=== PATIENT | male | born 1940 | race Caucasian/White ===

== ENCOUNTER 2018-07-20 14:02 | Inpatient (IN) | payer MEDICARE, MEDICAID ==
[2018-07-20 14:13] VITALS: BMI 24.8
--- NOTE | 2018-07-20 14:35 | C.PDOC ---
History Of Present Illness 77 y/o male presents to ED with c/o dizziness and headache since yesterday. Patient states yesterday afternoon he began to feel dizzy, went to sit down and fell forward sustaining abrasion to head. He fell on carpeted floor, and denies LOC. Patient admits to still feeling dizzy and pain to head when palpated. Denies vision changes, vomiting, chest pain or sob. - HPI Time Seen by Provider: 07/20/18 14:24 Chief Complaint (Nursing): Dizziness/Lightheaded History Per: Patient, Family History/Exam Limitations: no limitations Onset/Duration Of Symptoms: Days Past Medical History Reviewed: Historical Data, Nursing Documentation, Vital Signs Vital Signs: Last Vital Signs Temp 97.7 F 07/20/18 14:12 Pulse 88 07/20/18 14:12 Resp 16 07/20/18 14:12 BP 115/57 L 07/20/18 14:12 Pulse Ox 97 07/20/18 16:25 - Medical History PMH: Arthritis, Diabetes, HTN, Malignancy Surgical History: No Surg Hx Family History: States: No Known Family Hx - Social History Hx Alcohol Use: No Hx Substance Use: No - Immunization History Hx Tetanus Toxoid Vaccination: No Hx Influenza Vaccination: No Hx Pneumococcal Vaccination: No Review Of Systems Constitutional: Negative for: Fever, Chills Eyes: Negative for: Vision Change Cardiovascular: Negative for: Chest Pain Gastrointestinal: Negative for: Nausea, Vomiting Skin: Negative for: Rash Neurological: Positive for: Headache, Dizziness. Negative for: Weakness, Numbness Physical Exam - Physical Exam Appears: Non-toxic, No Acute Distress Skin: Warm, Dry, No Rash Head: Normacephalic, Abrasion (superficial to right frontal area) Eye(s): bilateral: Normal Inspection (No nystagmus), EOMI Oral Mucosa: Moist Neck: Supple Cardiovascular: Rhythm Regular Respiratory: Normal Breath Sounds, No Rales, No Rhonchi, No Wheezing Gastrointestinal/Abdominal: Soft, No Tenderness, No Guarding, No Rebound Extremity: Normal ROM, Capillary Refill (<2 seconds), No Deformity, Other (Left elbow: minimal tenderness to lateral aspect, superficial abrasion) Neurological/Psych: Oriented x3, Normal Speech, Normal Cranial Nerves, Normal Motor, Normal Sensation Gait: Steady ED Course And Treatment - Laboratory Results Result Diagrams: 07/20/18 14:41 07/20/18 14:41 Lab Interpretation: No Acute Changes ECG: Interpreted By Me, Viewed By Me ECG Interpretation: No Acute Changes Rate From EC O2 Sat by Pulse Oximetry: 97 (RA) Pulse Ox Interpretation: Normal - CT Scan/US CT head Other Rad Studies (CT/US): Read By Radiologist, Radiology Report Reviewed CT/US Interpretation: Date of service: 07/20/2018. PROCEDURE: CT HEAD WITHOUT CONTRAST. HISTORY: Dizziness. COMPARISON: None available. TECHNIQUE : Axial computed tomography images were obtained through the head/brain without intravenous contrast. Radiation dose: Total exam DLP = 1107.59 mGy- cm. This CT exam was performed using one or more of the following dose reduction techniques: Automated exposure control, adjustment of the mA and/or kV according to patient size, and/or use of iterative reconstruction technique. FINDINGS: HEMORRHAGE: No intracranial hemorrhage. BRAIN: Diffuse atrophy with prominence of the ventricles and sulci noted. No mass effect or edema. Bilateral basal ganglia calcifications. Scattered periventricular and subcortical white matter hypodensities, which are nonspecific, but often seen with chronic microvascular ischemic disease. Please note that MRI with diffusion imaging is more sensitive in the detection of acute ischemic event. VENTRICLES: No hydrocephalus. CALVARIUM: Unremarkable. PARANASAL SINUSES: Unremarkable as visualized. No significant inflammatory changes. MASTOID AIR CELLS: Partial opacification of the left mastoid air cells. The right mastoid air cells appear clear. OTHER FINDINGS: None. IMPRESSION: Generalized atrophy. Nonspecific white matter changes. Partial opacification of left mastoid air cells. Correlate clinically for possibility of mastoiditis. Medical Decision Making Medical Decision Making: Impression: head injury, dizzy Plan: * Blood work * UA * CT head w/o contrast * ECG Progress: Labs reviewed, there is leukocytosis with left shift and bands. Ordered CXR and blood cultures. Awaiting results of CT. CT head shows Generalized atrophy. Partial opacification of left mastoid air cells. Correlate clinically for possibility of mastoiditis. CXR shows Biapical pleural thickening. Bilateral lower lobe consolidations. Mid to lower left lobe opacity measuring approximately 5.6 x 4.0 cm possibly consolidation or neoplasm. Patient re-evaluated and resting comfortably. Ask patient further regarding any ear pain or cough or fever. The patient denies ear pain, but states has mild non -productive cough, no fevers or SOB. The TMs are pearly, dry cerumen in B/L ears. No mastoid tenderness. Case reviewed with ED attending who agrees ingectious source likely respiratory and to admit/treat Contact Dr Dumont to discuss the case and lab/imaging findings. He agrees to admit patient. Disposition Counseled Patient/Family Regarding: Diagnosis, Need For Followup - Disposition Disposition: HOSPITALIZED Disposition Time: 16:47 Condition: FAIR - POA Present On Arrival: None - Clinical Impression Clinical Impression: Pneumonia, Closed head injury - PA / SHAKER SCREEN OPERATOR / Resident Statement MD/DO has reviewed & agrees with the documentation as recorded. - Scribe Statement The provider has reviewed the documentation as recorded by the Scribe Lena Velazquez All medical record entries made by the Scribe were at my direction and personally dictated by me. I have reviewed the chart and agree that the record accurately reflects my personal performance of the history, physical exam, medical decision making, and the department course for this patient. I have also personally directed, reviewed, and agree with the discharge instructions and disposition. Decision To Admit - Pt Status Changed To: Hospital Disposition Of: Inpatient - Admit Certification Admit to Inpatient:: After my assessment, the patient will require hospitalization for at least two midnights. This is because of the severity of symptoms shown, intensity of services needed, and/or the medical risk in this patient being treated as an outpatient. - InPatient: Physician Admission Certification: I certify that this patient requires 2 or more midnights of care for the following reason:: Patient with acute pneumonia and leukocytosis with shift and bands. Patient will need IV antibiotics - . Bed Request Type: Regular Admitting Physician: Antonio Dumont Patient Diagnosis: Pneumonia, Closed head injury
[2018-07-20 14:45] LABS: BASO % 0.2 % (0.0-2.0); EOS % 0.3 % (0.0-4.0); HEMOGLOBIN 9.4 g/dL (12.0-18.0); LYMPH # 0.3 K/uL (1.0-4.3); LYMPH % 1.7 % (20.0-40.0); MEAN CELL VOLUME 87.6 fL (80.0-94.0); MEAN CORPUSCULAR HEMOGLOBIN 30.1 pg (27.0-31.0); MEAN CORPUSCULAR HGB CONC 34.4 g/dL (33.0-37.0); MEAN PLATELET VOLUME 7.9 fL (7.2-11.7); MONO # 0.8 K/uL (0.0-0.8); MONO % 5.3 % (0.0-10.0); NEUT # 13.7 K/uL (1.8-7.0); NEUT % 92.5 % (50.0-75.0); PLATELET COUNT 284 K/uL (130-400); RBC 3.13 Mil/uL (4.40-5.90); RED CELL DISTRIBUTION WIDTH 14.5 % (11.5-14.5); WHITE BLOOD COUNT 14.8 K/uL (4.8-10.8)
[2018-07-20 14:53] LABS: INR 1.2; PROTHROMBIN TIME 12.7 SECONDS (9.7-12.2)
[2018-07-20 14:57] LABS: ALB/GLOB RATIO 1.2 (1.0-2.1); ALBUMIN 3.8 g/dL (3.5-5.0); CALCIUM 9.1 mg/dl (8.6-10.4)
[2018-07-20 15:07] LABS: TROPONIN I 0.033 ng/mL (0.00-0.120)
[2018-07-20 15:26] LABS: ANISOCYTOSIS SLIGHT; BANDS 9 % (0-2); BURR CELLS SLIGHT; HYPOCHROMIC SLIGHT; LYMPHOCYTE 1 % (20-40); MONOCYTE 5 % (0-10); NEUTROPHIL 85 % (50-75); OVALOCYTES SLIGHT; PLATELET ESTIMATE NORMAL (NORMAL); POIKILOCYTOSIS SLIGHT; TARGET CELLS SLIGHT; TOTAL CELLS COUNTED 100
[2018-07-20] MEDS ORDERED: Sodium Chloride 0.9% 1,000 ML IV ONE (15:31)
[2018-07-20] MEDS ORDERED: Sodium Chloride 0.9% 1,000 ML ONE (15:43)
--- NOTE | 2018-07-20 15:46 | CT ---
Date of service: 07/20/2018 PROCEDURE: CT HEAD WITHOUT CONTRAST. HISTORY: Dizziness COMPARISON: None available TECHNIQUE: Axial computed tomography images were obtained through the head/brain without intravenous contrast. Radiation dose: Total exam DLP = 1107.59 mGy-cm. This CT exam was performed using one or more of the following dose reduction techniques: Automated exposure control, adjustment of the mA and/or kV according to patient size, and/or use of iterative reconstruction technique. FINDINGS: HEMORRHAGE: No intracranial hemorrhage. BRAIN: Diffuse atrophy with prominence of the ventricles and sulci noted. No mass effect or edema. Bilateral basal ganglia calcifications. Scattered periventricular and subcortical white matter hypodensities, which are nonspecific, but often seen with chronic microvascular ischemic disease. Please note that MRI with diffusion imaging is more sensitive in the detection of acute ischemic event. VENTRICLES: No hydrocephalus. CALVARIUM: Unremarkable. PARANASAL SINUSES: Unremarkable as visualized. No significant inflammatory changes. MASTOID AIR CELLS: Partial opacification of the left mastoid air cells. The right mastoid air cells appear clear. OTHER FINDINGS: None. IMPRESSION: Generalized atrophy. Nonspecific white matter changes. Partial opacification of left mastoid air cells. Correlate clinically for possibility of mastoiditis.
[2018-07-20 16:01] LABS: SQUAMOUS EPITHIAL 2 /hpf (0-5); URINE BACTERIA RARE (<OCC); WBC CLUMPS OCC /hpf
[2018-07-20 16:04] LABS: URINE BILIRUBIN SMALL (NEGATIVE); URINE BLOOD MODERATE (NEGATIVE); URINE CLARITY Hazy (Clear); URINE COLOR LIGHT BROWN (YELLOW); URINE GLUCOSE (UA) NEGATIVE (Normal)
[2018-07-20 16:05] LABS: PH,URINE 5.5 (5.0-8.0); URINE LEUKOCYTE ESTERASE 1+ Leu/uL (Negative); URINE PROTEIN 30 mg/dL (NEGATIVE); URINE UROBILINOGEN 0.2 mg/dL (0.2-1.0)
--- NOTE | 2018-07-20 16:32 | RAD ---
HISTORY: pre-admit COMPARISON: None available. TECHNIQUE: Chest PA and lateral FINDINGS: LUNGS: Biapical pleural thickening. Bilateral lower lobe consolidations. Left mid to lower lobe opacity measuring approximately 5.6 x 4.0 cm possibly consolidation or neoplasm. Please note that chest x-ray has limited sensitivity for the detection of pulmonary masses. PLEURA: No significant pleural effusion identified. No definite pneumothorax . CARDIOVASCULAR: Mild cardiomegaly. Ectatic aorta. OSSEOUS STRUCTURES: Osseous demineralization. Degenerative changes. VISUALIZED UPPER ABDOMEN: Unremarkable. OTHER FINDINGS: None. IMPRESSION: Biapical pleural thickening. Bilateral lower lobe consolidations. Mid to lower left lobe opacity measuring approximately 5.6 x 4.0 cm possibly consolidation or neoplasm. Mild cardiomegaly. Ectatic aorta.
[2018-07-20] MEDS ORDERED: cefTRIAXone IV 1 gm in Dextros 50 ML IV ONE (16:46)
[2018-07-20] MEDS ORDERED: Azithromycin 500mg/250ML NS 500 MG/250 ML BAG IV ONE (17:00)
[2018-07-20] MEDS ORDERED: cefTRIAXone 1 gm 1 GM/100 ML BAG IVPB ONE ×2 (17:03→18:00)
[2018-07-20] MEDS ORDERED: Azithromycin 500mg/250ML NS 500 MG/250 ML BAG IVPB ONE (17:04)
[2018-07-20] MEDS ORDERED: Dextrose 50% SYRINGE Inj (50 ml) IV PRN (20:14)
[2018-07-20] MEDS ORDERED: Glucagon Recombinant 1 mg Inj IM PRN (20:14)
[2018-07-20] MEDS: Sodium Chloride 0.45% 1,000 ML IV SCH (20:20)
[2018-07-20] MEDS: (Novolin R) Insulin Human Regular 100 units/ml vial SC SCH (21:34)
[2018-07-21 00:07] VITALS: RESP 20
--- NOTE | 2018-07-21 05:23 | HP ---
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 He was taken here by his brother. He called earlier that he was getting dizzy, lightheaded, also coughing. He had an abrasion on his head when he fell when he got dizzy. They brought him to the emergency room. Dizzy, lightheaded. We felt that the patient is on medicine for bronchitis with antibiotics and cough medicine. PAST MEDICAL HISTORY: He has past medical history of arthritis, diabetes, hypertension, cancer. PAST SURGICAL HISTORY: No surgical history. FAMILY HISTORY: Has hypertension in the family. SOCIAL HISTORY: No alcohol, no drugs, no smoking. REVIEW OF SYSTEMS: No fever. No chills. He is alert. He is talking. No acute vision changes. No hearing changes. No chest pain. No nausea or vomiting. He was dizzy and is short of breath. PHYSICAL EXAMINATION: VITAL SIGNS: He has 97.7 temperature, 88 pulse, 16 respiratory rate, 115/57 blood pressure, 97% O2 saturation on room air. GENERAL: He is resting comfortably, now in the gurney after antibiotics. In the emergency room, he is nontoxic. At this time, in no acute distress. SKIN: Warm and dry. No rashes. HEENT: Head is atraumatic and normocephalic. Superficial right frontal area abrasion. Extraocular muscles intact. He is smiling and is talking to me. NECK: Supple. Thyroid midline. No palpable appreciable lymphadenopathy. HEART: Regular rate. LUNGS: Decreased breath sounds bilaterally but no wheezes, rhonchi or rales auscultated. ABDOMEN: Soft. Nontender. Positive bowel sounds. No guarding. No rebound. No CVA tenderness. EXTREMITIES: No edema. NEUROLOGIC: He is alert, comfortable. Cranial nerves II through XII are grossly intact. SKIN: Slightly pale. No apparent rashes or ulcers. LABORATORY DATA: He had multiple tests in the ER. He has 130 sodium, potassium 3.6, BUN is up to 73, creatinine 3.3. I remember being lower GFR is 18. Sugar is 137, will have insulin coverage. Lactic acid is 1. Calcium is 9.1. Total bili is 0.7, AST is 53, ALT is 42, alkaline phosphatase is 75. Troponin I is 0.03. Total protein is 7.1, albumin 3.8. INR is 1.2. White count is up to 14.8, hemoglobin 9.4, hematocrit 27.4, platelets are 284. Interesting enough is chest x-ray showed biapical pleural thickening, bilateral lower lobe consolidation, mid to lower left lobe opacity measuring 5.6 x 4 cm, possibly consolidation and neoplasm, mild cardiomegaly. He also had a CAT scan of the head, generalized atrophy, nonspecific white matter; partial opacification of left mastoid air cells. IMPRESSION AND PLAN: We will have a consult with Renal for his acute kidney injury, Pulmonary for his possible pneumonia versus neoplasm, and for his syncope or near-syncope and dizziness, we will have Neuro. He will be on Rocephin intravenous, Zithromax intravenous and intravenous IV fluids. Physical Therapy consult. Oxygen. Check his labs tomorrow. Hopefully, he will improve. Had a dizzy, had a fall and has questionable pneumonia versus neoplasm, acute kidney injury. He is diabetic. Antonio Dumont DO [facility]
[2018-07-21] MEDS ORDERED: Promethazine DM 6.25 mg-15 mg/5 ml Syrup PO PRN (06:36)
[2018-07-21] MEDS: Levothyroxine 50 MCG TAB PO SCH (06:55)
[2018-07-21 07:30] LABS: BASO % 0.2 % (0.0-2.0); EOS # 0.1 K/uL (0.0-0.7); EOS % 0.6 % (0.0-4.0); HEMOGLOBIN 9.1 g/dL (12.0-18.0); LYMPH # 0.6 K/uL (1.0-4.3); LYMPH % 3.9 % (20.0-40.0); MEAN CELL VOLUME 86.6 fL (80.0-94.0); MEAN CORPUSCULAR HEMOGLOBIN 30.3 pg (27.0-31.0); MEAN PLATELET VOLUME 8.3 fL (7.2-11.7); MONO # 0.7 K/uL (0.0-0.8); NEUT # 13.2 K/uL (1.8-7.0); NEUT % 90.3 % (50.0-75.0); PLATELET COUNT 267 K/uL (130-400); RBC 2.99 Mil/uL (4.40-5.90); RED CELL DISTRIBUTION WIDTH 14.4 % (11.5-14.5); WHITE BLOOD COUNT 14.7 K/uL (4.8-10.8)
[2018-07-21 07:55] LABS: ALBUMIN 2.9 g/dL (3.5-5.0); CALCIUM 8.4 mg/dl (8.6-10.4)
[2018-07-21] MEDS: (Novolin R) Insulin Human Regular 100 units/ml vial SC SCH ×4 (08:13→22:35)
[2018-07-21 08:56] LABS: BANDS 4 % (0-2); EOSINOPHIL 1 % (0-4); LYMPHOCYTE 3 % (20-40); MONOCYTE 6 % (0-10); NEUTROPHIL 86 % (50-75); PLATELET ESTIMATE NORMAL (NORMAL); TOTAL CELLS COUNTED 100
[2018-07-21 09:12] LABS: BURR CELLS SLIGHT; HYPOCHROMIC SLIGHT; OVALOCYTES SLIGHT; POLYCHROMIC SLIGHT
[2018-07-21] MEDS ORDERED: Azithromycin 500 MG in Sodium Chloride 0.9% 250 ML IVPB SCH (10:00)
[2018-07-21] MEDS ORDERED: Levothyroxine 50 MCG TAB PO SCH (10:00)
[2018-07-21] MEDS: Enoxaparin 30 mg Syringe SC SCH (10:25)
[2018-07-21] MEDS: Pantoprazole 40 mg EC Tab PO SCH (10:25)
[2018-07-21] MEDS: LIPASE/PROTEASE/AMYLASE 21,000 U ECC PO SCH ×3 (11:00→16:57)
[2018-07-21] MEDS: Fluticasone-Salmeterol 250-50mcg Diskus IH SCH ×2 (11:17→19:57)
--- NOTE | 2018-07-21 11:18 | PN ---
DATE: 07/21/2018 SUBJECTIVE: He is resting comfortably in bed this morning. He had some coughing last night. No apparent wheeze, but he did sleep most of the night. He had some temperatures last night, the nurse said they needed Tylenol, it was fairly over 100, but he is comfortable. I want to get him out of bed to chair. He is on Rocephin and Zithromax IV for a possible pneumonia versus malignancy. Will need pulmonology to see him. PHYSICAL EXAMINATION: VITAL SIGNS: He has a 101.1 temperature, 92 pulse, 115/60 blood pressure, 20 respiratory rate and 96% O2 sat on nasal cannula. HEENT: His head is atraumatic and normocephalic. HEART: Regular rate. LUNGS: Decreased breath sounds bilaterally. No wheezes. No rhonchi. No rales at this time. ABDOMEN: Soft and nontender. Positive bowel sounds. EXTREMITIES: No edema. LABORATORY DATA: He has a 14.8 white count that was last night, last not populated. His blood sugar is 119. ASSESSMENT AND PLAN: He will have consults with Pulmonary, Renal and Neurology. He had a dizziness and fall. He has acute kidney injury and pneumonia versus neoplasm. He is on intravenous fluids, hopefully to help the kidneys. He is on Tylenol and antibiotics, alternative cough medicine to help them expectorate. I am hoping to get him out of bed to chair, I wonder what physical therapy feels about him. He might need to go to and hopefully he will improve. He comes in with a fall, dizziness, lower head trauma, possible pneumonia versus neoplasm and acute kidney injury. Antonio Dumont DO [facility]
[2018-07-21] MEDS ORDERED: Potassium Chloride 20 mEq/15 ml LIQ UD PO ONE (14:00)
--- NOTE | 2018-07-21 15:50 | CP.PCM.CON ---
History of Present Illness - History of Present Illness History of Present Illness: RENAL CONSULT FOR ADEN HPI: 77 yo M w/ pmh of dm and htn presenting w/ lightheadedness and fall. He was recently seeen by PCP on home visit for bronchitis and started on abx. He presented w/ lightheadedness, poor po intake and a fall complicated by an abrasian. He was found to have ADEN. He is unaware of any CKD history. He denies any difficulty w/ urination. He denies any NSAID use. Denies sycope. he was started on abx. He is being evaluated by pulm as well. + fevers. + mildly hypotensive ROS a full detailed ROS is negative except as above pmh: as below famhx: no esrd sochx: as below meds: as below all: nkda pe: vs as below gen: nad sclera: anicteric peerla op: clear poor dentition neck: supple cv: +s1+s2 no rub lungs: coarse bs w/ rales b/l abd: soft ntnd no organomegaly ext: no edema neuro: a+ox3 no focal deficit th psych: nml affect skin: abrasion on head labs and imaging reviewed imp: ARF/ hypokalemia/ Pneumonia/ Anemia / hypertension plan: ADEN - likely prerenal - was on hctz + diclofenac also as outpt w/ poor po intake - improving w/ abx and gentle hydratione. Will continue fluids as already written as improving will consider renal/bladder US if does not continue to improve 20 meq of kcl ordered on abx - dose for reduced eGFR f/u pulm evaluation consider ct chest , would avoid IV contrast for now unless renal function significantly improves anemia work up per primary team - unlikely to be renal related if all acute kideny injury. b/l renal function though is not known agree w/ holding his outpt ruben-i given the mildly low bp. thank you for this interesting consult Past Patient History - Past Medical History & Family History Past Medical History?: Yes - Past Social History Smoking Status: Never Smoked - CARDIAC Hx Hypertension: Yes - NEUROLOGICAL Hx Neurological Disorder: No - HEENT Hx HEENT Problems: No - RENAL Hx Chronic Kidney Disease: No - ENDOCRINE/METABOLIC Hx Diabetes Mellitus Type 2: Yes - HEMATOLOGICAL/ONCOLOGICAL Hx Blood Disorders: No - INTEGUMENTARY Hx Dermatological Problems: No - MUSCULOSKELETAL/RHEUMATOLOGICAL Hx Arthritis: Yes Hx Falls: Yes Hx Unsteady Gait: Yes - GASTROINTESTINAL Hx Gastrointestinal Disorders: No - GENITOURINARY/GYNECOLOGICAL Hx Genitourinary Disorders: No - PSYCHIATRIC Hx Substance Use: No - SURGICAL HISTORY Hx Surgeries: No - ANESTHESIA Hx Anesthesia: No Hx Anesthesia Reactions: No Hx Malignant Hyperthermia: No Has any member of the family had a problem w/ anesthesia?: No Meds Allergies/Adverse Reactions: Allergies Allergy/AdvReac Type Severity Reaction Status Date / Time No Known Allergies Allergy Verified 07/20/18 14:11 - Medications Medications: Current Medications Acetaminophen (Tylenol 325mg Tab) 650 mg PO Q6 PRN PRN Reason: Temperature Dextrose (Dextrose 50% Inj) 0 ml IV STAT PRN; Protocol PRN Reason: Hypoglycemia Protocol Dextrose (Glutose 15) 0 gm PO ONCE PRN; Protocol PRN Reason: Hypoglycemia Protocol Enoxaparin Sodium (Lovenox) 30 mg SC DAILY [facility] Last Admin: 07/21/18 10:25 Dose: 30 mg Finasteride (Proscar) 5 mg PO DAILY [facility] Last Admin: 07/21/18 10:26 Dose: 5 mg Finasteride (Proscar) 5 mg PO DAILY [facility] Last Admin: 07/21/18 11:32 Dose: Not Given Glucagon (Glucagen Diagnostic Kit) 0 mg IM STAT PRN; Protocol PRN Reason: Hypoglycemia Protocol Ceftriaxone Sodium 1 gm/ (Sodium Chloride) 100 mls @ 100 mls/hr IVPB DAILY [facility] PRN Reason: Protocol Last Admin: 07/21/18 10:26 Dose: 100 mls/hr Azithromycin 500 mg/ Sodium (Chloride) 250 mls @ 250 mls/hr IVPB DAILY [facility] PRN Reason: Protocol Last Admin: 07/21/18 10:50 Dose: 250 mls/hr Sodium Chloride (Sodium Chloride 0.45%) 1,000 mls @ 40 mls/hr IV .Q24H [facility] Last Admin: 07/20/18 20:20 Dose: 40 mls/hr Dextrose (Dextrose 5% In Water 1000 Ml) 1,000 mls @ 0 mls/hr IV .Q0M PRN; Protocol; Per Protocol PRN Reason: Hypoglycemia Protocol Insulin Human Regular (Novolin R) 0 unit SC ACHS [facility] Last Admin: 07/21/18 11:32 Dose: Not Given Levothyroxine Sodium (Synthroid) 50 mcg PO DAILY@0630 [facility] Last Admin: 07/21/18 06:55 Dose: 50 mcg Pantoprazole Sodium (Protonix Ec Tab) 40 mg PO DAILY [facility] Last Admin: 07/21/18 10:25 Dose: 40 mg Pneumococcal Polyvalent Vaccine (Pneumovax 23 Vaccine) 0.5 ml IM .ONCE ONE Stop: 07/23/18 10:01 Promethazine HCl/Dextromethorphan (Phenergan Dm Syrup) 5 ml PO Q6H PRN PRN Reason: Cough Rosuvastatin Calcium (Crestor) 10 mg PO HS [facility] Last Admin: 07/20/18 21:35 Dose: 10 mg Fluticasone/Salmeterol (Advair Diskus 250/50) 1 puff IH RBID [facility] Last Admin: 07/21/18 11:17 Dose: Not Given Sertraline HCl (Zoloft) 50 mg PO DAILY [facility] Last Admin: 07/21/18 10:25 Dose: 50 mg Tamsulosin HCl (Flomax) 0.4 mg PO DAILY [facility] Last Admin: 07/21/18 10:29 Dose: 0.4 mg Results - Vital Signs Recent Vital Signs: Last Vital Signs Temp 99.8 F H 07/21/18 15:27 Pulse 93 H 07/21/18 15:27 Resp 20 07/21/18 15:27 BP 152/68 H 07/21/18 15:27 Pulse Ox 98 07/21/18 15:27 - Labs Result Diagrams: 07/21/18 07:10 07/21/18 07:10 Labs: Laboratory Results - last 24 hr 07/20/18 07/20/18 07/20/18 15:38 16:31 21:21 WBC RBC Hgb Hct MCV MCH MCHC RDW Plt Count MPV Neut % (Auto) Lymph % (Auto) [place] % (Auto) Eos % (Auto) Baso % (Auto) Neut # (Auto) Lymph # (Auto) [place] # (Auto) Eos # (Auto) Baso # (Auto) Neutrophils % (Manual) Band Neutrophils % Lymphocytes % (Manual) Monocytes % (Manual) Eosinophils % (Manual) Platelet Estimate Polychromasia Hypochromasia (manual) Ovalocytes Lis Cells Sodium Potassium Chloride Carbon Dioxide Anion Gap BUN Creatinine Est GFR ( Amer) Est GFR (Non-Af Amer) POC Glucose (mg/dL) 119 H Random Glucose Lactic Acid 1.0 Calcium Total Bilirubin AST ALT Alkaline Phosphatase Total Protein Albumin Globulin Albumin/Globulin Ratio Urine Color Light brown Urine Clarity Hazy Urine pH 5.5 Ur Specific [place] 1.030 Urine Protein 30 Urine Glucose (UA) Negative Urine Ketones Trace H Urine Blood Moderate Urine Nitrate Negative Urine Bilirubin Small Urine Urobilinogen 0.2 Ur Leukocyte Esterase 1+ H Urine WBC (Auto) 17 H Urine RBC (Auto) 10 H Urine WBC Clumps (Auto) Occ H Ur Squamous Epith Cells 2 Urine Bacteria Rare Hyaline Casts 6-10 H 07/21/18 07/21/18 07/21/18 02:32 07:10 07:10 WBC 14.7 H RBC 2.99 L Hgb 9.1 L Hct 25.9 L MCV 86.6 MCH 30.3 MCHC 35.0 RDW 14.4 Plt Count 267 MPV 8.3 Neut % (Auto) 90.3 H Lymph % (Auto) 3.9 L [place] % (Auto) 5.0 Eos % (Auto) 0.6 Baso % (Auto) 0.2 Neut # (Auto) 13.2 H Lymph # (Auto) 0.6 L [place] # (Auto) 0.7 Eos # (Auto) 0.1 Baso # (Auto) 0.0 Neutrophils % (Manual) 86 H Band Neutrophils % 4 H Lymphocytes % (Manual) 3 L Monocytes % (Manual) 6 Eosinophils % (Manual) 1 Platelet Estimate Normal Polychromasia Slight Hypochromasia (manual) Slight Ovalocytes Slight [place] Cells Slight Sodium 137 Potassium 3.3 L Chloride 104 Carbon Dioxide 17 L Anion Gap 19 BUN 67 H Creatinine 2.5 H Est GFR ( Amer) 30 Est GFR (Non-Af Amer) 25 POC Glucose (mg/dL) 92 Random Glucose 107 Lactic Acid Calcium 8.4 L Total Bilirubin 0.5 AST 86 H D ALT 67 Alkaline Phosphatase 119 Total Protein 5.9 L Albumin 2.9 L D Globulin 2.9 Albumin/Globulin Ratio 1.0 Urine Color Urine Clarity Urine pH Ur Specific [place] Urine Protein Urine Glucose (UA) Urine Ketones Urine Blood Urine Nitrate Urine Bilirubin Urine Urobilinogen Ur Leukocyte Esterase Urine WBC (Auto) Urine RBC (Auto) Urine WBC Clumps (Auto) Ur Squamous Epith Cells Urine Bacteria Hyaline Casts 07/21/18 07/21/18 07:22 11:08 WBC RBC Hgb Hct MCV MCH MCHC RDW Plt Count MPV Neut % (Auto) Lymph % (Auto) [place] % (Auto) Eos % (Auto) Baso % (Auto) Neut # (Auto) Lymph # (Auto) [place] # (Auto) Eos # (Auto) Baso # (Auto) Neutrophils % (Manual) Band Neutrophils % Lymphocytes % (Manual) Monocytes % (Manual) Eosinophils % (Manual) Platelet Estimate Polychromasia Hypochromasia (manual) Ovalocytes Lis Cells Sodium Potassium Chloride Carbon Dioxide Anion Gap BUN Creatinine Est GFR ( Amer) Est GFR (Non-Af Amer) POC Glucose (mg/dL) 109 117 H Random Glucose Lactic Acid Calcium Total Bilirubin AST ALT Alkaline Phosphatase Total Protein Albumin Globulin Albumin/Globulin Ratio Urine Color Urine Clarity Urine pH Ur Specific [place] Urine Protein Urine Glucose (UA) Urine Ketones Urine Blood Urine Nitrate Urine Bilirubin Urine Urobilinogen Ur Leukocyte Esterase Urine WBC (Auto) Urine RBC (Auto) Urine WBC Clumps (Auto) Ur Squamous Epith Cells Urine Bacteria Hyaline Casts
--- NOTE | 2018-07-21 18:42 | CP.PCM.CON ---
History of Present Illness - History of Present Illness History of Present Illness: 77 y/o male presents to ED with c/o dizziness and headache since yesterday. Patient states yesterday afternoon he began to feel dizzy, went to sit down and fell forward sustaining abrasion to head. He fell on carpeted floor, and denies LOC. Patient admits to still feeling dizzy and pain to head when palpated. Denies vision changes, vomiting, chest pain or sob. admitted for pneumonia and ? lung mass Blood c/s x 2 + for cocci in cluters ( official ID pending) - Medical History PMH: Arthritis, Diabetes, HTN, Malignancy Surgical History: No Surg Hx Family History: States: No Known Family Hx Review of Systems - Review of Systems All systems: reviewed and no additional remarkable complaints except - Constitutional Constitutional: As Per HPI, Anorexia, Chills - EENT Eyes: absent: As Per HPI, Blind Spots, Blurred Vision, Change in Vision, Decreased Night Vision, Diplopia, Discharge, Dry Eye, Exophthalmos, Floaters, Irritation, Itchy Eyes, Loss of Peripheral Vision, Pain, Photophobia, Requires Corrective Lenses, Sees Flashes, Spots in Vision, Tunnel Vision, Other Visual Disturbances, Loss of Vision, Other Ears: absent: As Per HPI, Decreased Hearing, Ear Discharge, Ear Pain, Tinnitus, Abnormal Hearing, Disequilibrium, Dizziness, Other Nose/Mouth/Throat: absent: As Per HPI, Epistaxis, Nasal Congestion, Nasal Discharge, Nasal Obstruction, Nasal Trauma, Nose Pain, Post Nasal Drip, Sinus Pain, Sinus Pressure, Bleeding Gums, Change in Voice, Dental Pain, Dry Mouth, Dysphagia, Halitosis, Hoarsness, Lip Swelling, Mouth Lesions, Mouth Pain, Odynophagia, Sore Throat, Throat Swelling, Tongue Swelling, Facial Pain, Neck Pain, Neck Mass, Other - Cardiovascular Cardiovascular: As Per HPI - Respiratory Respiratory: As Per HPI, Cough, Dyspnea - Gastrointestinal Gastrointestinal: absent: As Per HPI, Abdominal Pain, Belching, Bloating, Change in Bowel Habits, Change in Stool Character, Coffee Ground Emesis, Constipation, Cramping, Diarrhea, Dyspepsia, Dysphagia, Early Satiety, Excessive Flatus, Fecal Incontinence, Heartburn, Hematemesis, Hematochezia, Loose Stools, Melena, Nausea, Odynophagia, Temesmus, Vomiting, Other - Genitourinary Genitourinary: absent: As Per HPI, Change in Urinary Stream, Difficulty Urinating, Dysuria, Flank Pain, Hematuria, Pyuria, Nocturia, Urinary Incontinence, Urinary Frequency, Urinary Hesitance, Urinary Urgency, Voiding Freq/Small Amts, Freq UTI, Hx Renal/Bladder Calculi, Hx /Renal Surgery, Bladder Distension, Other - Musculoskeletal Musculoskeletal: absent: As Per HPI, Abnormal Gait, Arthralgias, Atrophy, Back Pain, Deformity, Joint Swelling, Limited Range of Motion, Loss of Height, Muscle Cramps, Muscle Weakness, Myalgias, Neck Pain, Numbness, Radiating Pain into Limb, Stiffness, Tingling, Other - Integumentary Integumentary: absent: As Per HPI, Acne, Alopecia, Bleeding Lesions, Change in Hair, Change in Nails, Change in Pigmentation, Changing Lesions, Dry Skin, Erythema, Furuncle, Hirsutism, Lesions, New Lesions, Non-Healing Lesions, Photosensitivity, Pruritus, Rash, Skin Pain, Skin Ulcer, Sores, Striae, Swelling , Unusual Bruising, Wounds, Jaundice, Other - Neurological Neurological: As Per HPI - Psychiatric Psychiatric: absent: As Per HPI, Abnormal Sleep Pattern, Anhedonia, Anxiety, Auditory Hallucinations, Behavioral Changes, Change in Appetite, Change in Libido, Confusion, Depression, Difficulty Concentrating, Hallucinations, Homicidal Ideation, Hopelessness, Irritability, Memory Loss, Mood Swings, Panic Attacks, Paranoia, Suicidal Ideation, Visual Hallucinations, Tactile Hallucinations, Other - Endocrine Endocrine: absent: As Per HPI, Change in Body Appearance, Change in Libido, Cold Intolorance, Deepening of Voice, Excessive Sweating, Fatigue, Flushing, Heat Intolorance, Increase in Ring/Shoe/Hat Size, Palpitations, Polydipsia, Polyphagia, Polyuria, Other - Hematologic/Lymphatic Hematologic: absent: As Per HPI, Easy Bleeding, Easy Bruising, Lymphadenopathy, Other Past Patient History - Past Medical History & Family History Past Medical History?: Yes - Past Social History Smoking Status: Never Smoked - CARDIAC Hx Hypertension: Yes - NEUROLOGICAL Hx Neurological Disorder: No - HEENT Hx HEENT Problems: No - RENAL Hx Chronic Kidney Disease: No - ENDOCRINE/METABOLIC Hx Diabetes Mellitus Type 2: Yes - HEMATOLOGICAL/ONCOLOGICAL Hx Blood Disorders: No - INTEGUMENTARY Hx Dermatological Problems: No - MUSCULOSKELETAL/RHEUMATOLOGICAL Hx Arthritis: Yes - GASTROINTESTINAL Hx Gastrointestinal Disorders: No - GENITOURINARY/GYNECOLOGICAL Hx Genitourinary Disorders: No - PSYCHIATRIC Hx Substance Use: No - SURGICAL HISTORY Hx Surgeries: No - ANESTHESIA Hx Anesthesia: No Hx Anesthesia Reactions: No Hx Malignant Hyperthermia: No Has any member of the family had a problem w/ anesthesia?: No Meds Allergies/Adverse Reactions: Allergies Allergy/AdvReac Type Severity Reaction Status Date / Time No Known Allergies Allergy Verified 07/20/18 14:11 - Medications Medications: Current Medications Acetaminophen (Tylenol 325mg Tab) 650 mg PO Q6 PRN PRN Reason: Temperature Last Admin: 07/21/18 17:35 Dose: 650 mg Dextrose (Dextrose 50% Inj) 0 ml IV STAT PRN; Protocol PRN Reason: Hypoglycemia Protocol Dextrose (Glutose 15) 0 gm PO ONCE PRN; Protocol PRN Reason: Hypoglycemia Protocol Enoxaparin Sodium (Lovenox) 30 mg SC DAILY [facility] Last Admin: 07/21/18 10:25 Dose: 30 mg Finasteride (Proscar) 5 mg PO DAILY [facility] Last Admin: 07/21/18 10:26 Dose: 5 mg Finasteride (Proscar) 5 mg PO DAILY [facility] Last Admin: 07/21/18 11:32 Dose: Not Given Glucagon (Glucagen Diagnostic Kit) 0 mg IM STAT PRN; Protocol PRN Reason: Hypoglycemia Protocol Ceftriaxone Sodium 1 gm/ (Sodium Chloride) 100 mls @ 100 mls/hr IVPB DAILY [facility] PRN Reason: Protocol Last Admin: 07/21/18 10:26 Dose: 100 mls/hr Azithromycin 500 mg/ Sodium (Chloride) 250 mls @ 250 mls/hr IVPB DAILY [facility] PRN Reason: Protocol Last Admin: 07/21/18 10:50 Dose: 250 mls/hr Sodium Chloride (Sodium Chloride 0.45%) 1,000 mls @ 40 mls/hr IV .Q24H [facility] Last Admin: 07/20/18 20:20 Dose: 40 mls/hr Dextrose (Dextrose 5% In Water 1000 Ml) 1,000 mls @ 0 mls/hr IV .Q0M PRN; Protocol; Per Protocol PRN Reason: Hypoglycemia Protocol Insulin Human Regular (Novolin R) 0 unit SC ACHS [facility] Last Admin: 07/21/18 16:53 Dose: Not Given Levothyroxine Sodium (Synthroid) 50 mcg PO DAILY@0630 [facility] Last Admin: 07/21/18 06:55 Dose: 50 mcg Pantoprazole Sodium (Protonix Ec Tab) 40 mg PO DAILY [facility] Last Admin: 07/21/18 10:25 Dose: 40 mg Pneumococcal Polyvalent Vaccine (Pneumovax 23 Vaccine) 0.5 ml IM .ONCE ONE Stop: 07/23/18 10:01 Promethazine HCl/Dextromethorphan (Phenergan Dm Syrup) 5 ml PO Q6H PRN PRN Reason: Cough Rosuvastatin Calcium (Crestor) 10 mg PO HS [facility] Last Admin: 07/20/18 21:35 Dose: 10 mg Fluticasone/Salmeterol (Advair Diskus 250/50) 1 puff IH RBID [facility] Last Admin: 07/21/18 11:17 Dose: Not Given Sertraline HCl (Zoloft) 50 mg PO DAILY [facility] Last Admin: 07/21/18 10:25 Dose: 50 mg Tamsulosin HCl (Flomax) 0.4 mg PO DAILY [facility] Last Admin: 07/21/18 10:29 Dose: 0.4 mg Physical Exam - Constitutional Appears: No Acute Distress, Confused, Cachectic, Chronically Ill - Head Exam Head Exam: ATRAUMATIC, NORMOCEPHALIC - Eye Exam Eye Exam: EOMI, PERRL. absent: Scleral icterus - ENT Exam ENT Exam: Mucous Membranes Dry, Normal External Ear Exam - Neck Exam Neck exam: Negative for: Lymphadenopathy - Respiratory Exam Respiratory Exam: Decreased Breath Sounds, Prolonged Expiratory Phase, Rhonchi - Cardiovascular Exam Cardiovascular Exam: REGULAR RHYTHM, +S1, +S2 - GI/Abdominal Exam GI & Abdominal Exam: Diminished Bowel Sounds, Distended, Soft. absent: Tenderness - Rectal Exam Rectal Exam: Deferred - Exam Exam: NORMAL INSPECTION - Extremities Exam Extremities exam: Negative for: pedal edema - Back Exam Back exam: absent: CVA tenderness (L), CVA tenderness (R), paraspinal tenderness - Neurological Exam Neurological exam: Alert, CN II-XII Intact, Oriented x3 - Psychiatric Exam Psychiatric exam: Depressed - Skin Skin Exam: Dry, Intact Results - Vital Signs Recent Vital Signs: Last Vital Signs Temp 100.3 F H 07/21/18 17:35 Pulse 93 H 07/21/18 15:27 Resp 20 07/21/18 15:27 BP 152/68 H 07/21/18 15:27 Pulse Ox 98 07/21/18 15:27 - Labs Result Diagrams: 07/21/18 07:10 07/21/18 07:10 Labs: Laboratory Results - last 24 hr 07/20/18 07/21/18 07/21/18 21:21 02:32 07:10 WBC 14.7 H RBC 2.99 L Hgb 9.1 L Hct 25.9 L MCV 86.6 MCH 30.3 MCHC 35.0 RDW 14.4 Plt Count 267 MPV 8.3 Neut % (Auto) 90.3 H Lymph % (Auto) 3.9 L [place] % (Auto) 5.0 Eos % (Auto) 0.6 Baso % (Auto) 0.2 Neut # (Auto) 13.2 H Lymph # (Auto) 0.6 L [place] # (Auto) 0.7 Eos # (Auto) 0.1 Baso # (Auto) 0.0 Neutrophils % (Manual) 86 H Band Neutrophils % 4 H Lymphocytes % (Manual) 3 L Monocytes % (Manual) 6 Eosinophils % (Manual) 1 Platelet Estimate Normal Polychromasia Slight Hypochromasia (manual) Slight Ovalocytes Slight Lis Cells Slight Sodium Potassium Chloride Carbon Dioxide Anion Gap BUN Creatinine Est GFR ( Amer) Est GFR (Non-Af Amer) POC Glucose (mg/dL) 119 H 92 Random Glucose Calcium Total Bilirubin AST ALT Alkaline Phosphatase Total Protein Albumin Globulin Albumin/Globulin Ratio 07/21/18 07/21/18 07/21/18 07:10 07:22 11:08 WBC RBC Hgb Hct MCV MCH MCHC RDW Plt Count MPV Neut % (Auto) Lymph % (Auto) [place] % (Auto) Eos % (Auto) Baso % (Auto) Neut # (Auto) Lymph # (Auto) [place] # (Auto) Eos # (Auto) Baso # (Auto) Neutrophils % (Manual) Band Neutrophils % Lymphocytes % (Manual) Monocytes % (Manual) Eosinophils % (Manual) Platelet Estimate Polychromasia Hypochromasia (manual) Ovalocytes Lis Cells Sodium 137 Potassium 3.3 L Chloride 104 Carbon Dioxide 17 L Anion Gap 19 BUN 67 H Creatinine 2.5 H Est GFR ( Amer) 30 Est GFR (Non-Af Amer) 25 POC Glucose (mg/dL) 109 117 H Random Glucose 107 Calcium 8.4 L Total Bilirubin 0.5 AST 86 H D ALT 67 Alkaline Phosphatase 119 Total Protein 5.9 L Albumin 2.9 L D Globulin 2.9 Albumin/Globulin Ratio 1.0 07/21/18 16:42 WBC RBC Hgb Hct MCV MCH MCHC RDW Plt Count MPV Neut % (Auto) Lymph % (Auto) [place] % (Auto) Eos % (Auto) Baso % (Auto) Neut # (Auto) Lymph # (Auto) [place] # (Auto) Eos # (Auto) Baso # (Auto) Neutrophils % (Manual) Band Neutrophils % Lymphocytes % (Manual) Monocytes % (Manual) Eosinophils % (Manual) Platelet Estimate Polychromasia Hypochromasia (manual) Ovalocytes [place] Cells Sodium Potassium Chloride Carbon Dioxide Anion Gap BUN Creatinine Est GFR ( Amer) Est GFR (Non-Af Amer) POC Glucose (mg/dL) 119 H Random Glucose Calcium Total Bilirubin AST ALT Alkaline Phosphatase Total Protein Albumin Globulin Albumin/Globulin Ratio Assessment & Plan (1) Bacteremia Status: Acute (2) Pneumonia Status: Acute - Assessment and Plan (Free Text) Assessment: await official ciultures will cover for MRSA until isolate identified
[2018-07-21] MEDS ORDERED: Linezolid 600 mg in D5W 300 ml 600 MG/300 ML BAG IVPB SCH (18:45)
[2018-07-21] MEDS: Linezolid 600 mg in D5W 300 ml 600 MG/300 ML BAG IVPB SCH (21:00)
[2018-07-21] MEDS: Sodium Chloride 0.45% 1,000 ML IV SCH (22:32)
[2018-07-22] MEDS: Levothyroxine 50 MCG TAB PO SCH (05:30)
[2018-07-22 06:42] LABS: BASO % 0.2 % (0.0-2.0); EOS # 0.1 K/uL (0.0-0.7); EOS % 0.7 % (0.0-4.0); HEMOGLOBIN 9.7 g/dL (12.0-18.0); LYMPH # 0.6 K/uL (1.0-4.3); LYMPH % 3.8 % (20.0-40.0); MEAN CELL VOLUME 86.1 fL (80.0-94.0); MEAN CORPUSCULAR HEMOGLOBIN 29.3 pg (27.0-31.0); MEAN PLATELET VOLUME 7.8 fL (7.2-11.7); MONO # 0.8 K/uL (0.0-0.8); MONO % 4.8 % (0.0-10.0); NEUT # 14.5 K/uL (1.8-7.0); NEUT % 90.5 % (50.0-75.0); PLATELET COUNT 317 K/uL (130-400); RBC 3.32 Mil/uL (4.40-5.90); RED CELL DISTRIBUTION WIDTH 15.2 % (11.5-14.5)
[2018-07-22 07:35] LABS: ALB/GLOB RATIO 1.1 (1.0-2.1); ALBUMIN 3.3 g/dL (3.5-5.0); CALCIUM 8.6 mg/dl (8.6-10.4)
[2018-07-22] MEDS: (Novolin R) Insulin Human Regular 100 units/ml vial SC SCH ×4 (07:36→21:30)
[2018-07-22] MEDS: Fluticasone-Salmeterol 250-50mcg Diskus IH SCH (07:58)
[2018-07-22] MEDS: Linezolid 600 mg in D5W 300 ml 600 MG/300 ML BAG IVPB SCH ×2 (09:00→19:32)
[2018-07-22] MEDS: LIPASE/PROTEASE/AMYLASE 21,000 U ECC PO SCH ×3 (09:00→17:00)
[2018-07-22 09:29] LABS: ANISOCYTOSIS SLIGHT; BANDS 5 % (0-2); LYMPHOCYTE 2 % (20-40); MONOCYTE 3 % (0-10); NEUTROPHIL 90 % (50-75); PLATELET ESTIMATE NORMAL (NORMAL); TOTAL CELLS COUNTED 100
[2018-07-22 09:30] LABS: BURR CELLS SLIGHT; HYPOCHROMIC SLIGHT; OVALOCYTES SLIGHT; POIKILOCYTOSIS SLIGHT; POLYCHROMIC SLIGHT; SCHISTOCYTES SLIGHT; TOXIC GRANULATION PRESENT
[2018-07-22] MEDS: Pantoprazole 40 mg EC Tab PO SCH (09:50)
[2018-07-22] MEDS: Enoxaparin 30 mg Syringe SC SCH (09:50)
[2018-07-22 11:47] LABS: HEPATITIS B SURFACE AG Negative (NEGATIVE)
[2018-07-22 11:53] LABS: HEPATITIS A IGM NEGATIVE (NEGATIVE); HEPATITIS B CORE AB NEGATIVE (NEGATIVE)
[2018-07-22 12:05] LABS: HEPATITIS C ANTIBODY NEGATIVE (NEGATIVE)
--- NOTE | 2018-07-22 12:35 | PN ---
DATE: 07/22/2018 SUBJECTIVE: He is sitting out of bed to chair this morning. He is alert. He is not really hungry, he tells me. No real shortness of breath, cough at this time. PHYSICAL EXAMINATION: VITAL SIGNS: He has a 99.5 temperature, it was as high as 100.3 last night, temperature is still fluctuating, 86 pulse, 148/71 blood pressure, 20 respiratory rate, 98% O2 sat on 2 liters. HEENT: His head is atraumatic and normocephalic. HEART: Regular rate. LUNGS: Decreased breath sounds bilaterally. No apparent wheezes or rhonchi. ABDOMEN: Soft. EXTREMITIES: No edema. MEDICATIONS: He is currently on Advair, Rocephin, Crestor, Dextrose, Flomax, Glucagon, Lovenox, Novolin, Phenergan, Proscar, Protonix, IV fluid, Synthroid, Tylenol and Zyvox. LABORATORY DATA: He has a white count of 16, it is coming up, 9.7 hemoglobin, 28.6 hematocrit with 370 platelets. He has 138 sodium, potassium 3.7, BUN 30, creatinine 1.8 improving. GFR is 37. Last blood sugar is 102, calcium is 8.6. Total bili is 0.6, AST is 102, ALT 105, alkaline phosphatase 198, elevated liver enzymes could be from antibiotics, we will call in GI and get their opinion. His micro is gram positive cocci in two blood cultures. ASSESSMENT AND PLAN: He is being seen so far by Renal and by Infectious Disease. Waiting for pulmonary to come in and consulted GI for his elevated liver enzymes. Questionable left lower lobe infiltrate, questionable mass in the lungs, bacteremia versus sepsis, acute kidney injury slowly improving, anemia. He was dizzy, elevated liver enzymes. He is on IV fluids. We will see how he does getting the BUN, creatinine to improve, which it is, hopefully, they will improve even further. I encouraged him to eat as best as he can. We will continue aggressive treatment and care. We will check his labs tomorrow. Antonio Dumont DO [facility] # [id number] [place]
--- NOTE | 2018-07-22 13:35 | CP.PCM.CON ---
History of Present Illness - History of Present Illness History of Present Illness: Consult requested by PMD- History taken from the chart. Patient is confused. This is a 77 yo M w/ pmh of DM, HTN presenting w/ lightheadedness and fall. He was recently seeen by PCP on home visit for bronchitis and started on abx. He presented w/ lightheadedness, poor po intake and a fall complicated by an abrasian. He was found to have ADEN. He is unaware of any CKD history. He denies any difficulty w/ urination. He denies any NSAID use. Denies sycope. He was started on rocephin and zosyn and GI consulted for elevated transminases and Alk Ph. Review of Systems - Review of Systems Review of Systems: 12 point ROS as in HPI Past Patient History - Past Medical History & Family History Past Medical History?: Yes - Past Social History Smoking Status: Never Smoked - CARDIAC Hx Hypertension: Yes - NEUROLOGICAL Hx Neurological Disorder: No - HEENT Hx HEENT Problems: No - RENAL Hx Chronic Kidney Disease: No - ENDOCRINE/METABOLIC Hx Diabetes Mellitus Type 2: Yes - HEMATOLOGICAL/ONCOLOGICAL Hx Blood Disorders: No - INTEGUMENTARY Hx Dermatological Problems: No - MUSCULOSKELETAL/RHEUMATOLOGICAL Hx Arthritis: Yes - GASTROINTESTINAL Hx Gastrointestinal Disorders: No - GENITOURINARY/GYNECOLOGICAL Hx Genitourinary Disorders: No - PSYCHIATRIC Hx Substance Use: No - SURGICAL HISTORY Hx Surgeries: No - ANESTHESIA Hx Anesthesia: No Hx Anesthesia Reactions: No Hx Malignant Hyperthermia: No Has any member of the family had a problem w/ anesthesia?: No Meds Allergies/Adverse Reactions: Allergies Allergy/AdvReac Type Severity Reaction Status Date / Time No Known Allergies Allergy Verified 07/20/18 14:11 - Medications Medications: Current Medications Dextrose (Dextrose 50% Inj) 0 ml IV STAT PRN; Protocol PRN Reason: Hypoglycemia Protocol Dextrose (Glutose 15) 0 gm PO ONCE PRN; Protocol PRN Reason: Hypoglycemia Protocol Enoxaparin Sodium (Lovenox) 30 mg SC DAILY [facility] Last Admin: 07/22/18 09:50 Dose: 30 mg Finasteride (Proscar) 5 mg PO DAILY [facility] Last Admin: 07/22/18 09:58 Dose: 5 mg Finasteride (Proscar) 5 mg PO DAILY [facility] Last Admin: 07/22/18 09:58 Dose: Not Given Glucagon (Glucagen Diagnostic Kit) 0 mg IM STAT PRN; Protocol PRN Reason: Hypoglycemia Protocol Sodium Chloride (Sodium Chloride 0.45%) 1,000 mls @ 40 mls/hr IV .Q24H [facility] Last Admin: 07/21/18 22:32 Dose: 40 mls/hr Dextrose (Dextrose 5% In Water 1000 Ml) 1,000 mls @ 0 mls/hr IV .Q0M PRN; Protocol; Per Protocol PRN Reason: Hypoglycemia Protocol Ceftriaxone Sodium 1 gm/ (Sodium Chloride) 100 mls @ 200 mls/hr IVPB Q12H [facility] PRN Reason: Protocol Last Admin: 07/22/18 06:00 Dose: 200 mls/hr Linezolid (Zyvox 600mg/300ml D5w) 600 mg in 300 mls @ 200 mls/hr IVPB Q12H [facility] PRN Reason: Protocol Last Admin: 07/22/18 09:00 Dose: 200 mls/hr Insulin Human Regular (Novolin R) 0 unit SC ACHS [facility] Last Admin: 07/22/18 12:30 Dose: Not Given Levothyroxine Sodium (Synthroid) 50 mcg PO DAILY@0630 [facility] Last Admin: 07/22/18 05:30 Dose: 50 mcg Pantoprazole Sodium (Protonix Ec Tab) 40 mg PO DAILY [facility] Last Admin: 07/22/18 09:50 Dose: 40 mg Pneumococcal Polyvalent Vaccine (Pneumovax 23 Vaccine) 0.5 ml IM .ONCE ONE Stop: 07/23/18 10:01 Promethazine HCl/Dextromethorphan (Phenergan Dm Syrup) 5 ml PO Q6H PRN PRN Reason: Cough Rosuvastatin Calcium (Crestor) 20 mg PO HS [facility] Fluticasone/Salmeterol (Advair Diskus 250/50) 1 puff IH RBID [facility] Last Admin: 07/22/18 07:58 Dose: Not Given Tamsulosin HCl (Flomax) 0.4 mg PO DAILY [facility] Last Admin: 07/22/18 09:50 Dose: 0.4 mg Physical Exam - Constitutional Appears: Well - Head Exam Head Exam: ATRAUMATIC, NORMAL INSPECTION, NORMOCEPHALIC - Eye Exam Eye Exam: EOMI, Normal appearance, PERRL - ENT Exam ENT Exam: Mucous Membranes Moist, Normal Exam - Respiratory Exam Respiratory Exam: Clear to Auscultation Bilateral, NORMAL BREATHING PATTERN - Cardiovascular Exam Cardiovascular Exam: REGULAR RHYTHM - GI/Abdominal Exam GI & Abdominal Exam: Normal Bowel Sounds, Soft. absent: Tenderness Results - Vital Signs Recent Vital Signs: Last Vital Signs Temp 99.3 F 07/22/18 10:00 Pulse 100 H 07/22/18 08:00 Resp 20 07/22/18 08:00 BP 149/71 07/22/18 08:00 Pulse Ox 95 07/22/18 08:00 - Labs Result Diagrams: 07/22/18 06:28 07/22/18 06:28 Labs: Laboratory Results - last 24 hr 07/21/18 07/21/18 07/21/18 07:08 16:42 21:14 WBC RBC Hgb Hct MCV MCH MCHC RDW Plt Count MPV Neut % (Auto) Lymph % (Auto) [place] % (Auto) Eos % (Auto) Baso % (Auto) Neut # (Auto) Lymph # (Auto) [place] # (Auto) Eos # (Auto) Baso # (Auto) Neutrophils % (Manual) Band Neutrophils % Lymphocytes % (Manual) Monocytes % (Manual) Toxic Granulation Platelet Estimate Polychromasia Hypochromasia (manual) Poikilocytosis (manual Anisocytosis (manual) Ovalocytes Lis Cells Schistocytes Sodium Potassium Chloride Carbon Dioxide Anion Gap BUN Creatinine Est GFR ( Amer) Est GFR (Non-Af Amer) POC Glucose (mg/dL) 119 H 106 Random Glucose Calcium Total Bilirubin AST ALT Alkaline Phosphatase Total Protein Albumin Globulin Albumin/Globulin Ratio Hepatitis A IgM Ab Hep Bs Antigen Hep B Core IgM Ab Hepatitis C Antibody Ur L.pneumophila Ag Negative 07/22/18 07/22/18 07/22/18 02:29 06:28 06:28 WBC 16.0 H RBC 3.32 L Hgb 9.7 L Hct 28.6 L MCV 86.1 MCH 29.3 MCHC 34.0 RDW 15.2 H Plt Count 317 MPV 7.8 Neut % (Auto) 90.5 H Lymph % (Auto) 3.8 L [place] % (Auto) 4.8 Eos % (Auto) 0.7 Baso % (Auto) 0.2 Neut # (Auto) 14.5 H Lymph # (Auto) 0.6 L [place] # (Auto) 0.8 Eos # (Auto) 0.1 Baso # (Auto) 0.0 Neutrophils % (Manual) 90 H Band Neutrophils % 5 H Lymphocytes % (Manual) 2 L Monocytes % (Manual) 3 Toxic Granulation Present Platelet Estimate Normal Polychromasia Slight Hypochromasia (manual) Slight Poikilocytosis (manual Slight Anisocytosis (manual) Slight Ovalocytes Slight [place] Cells Slight Schistocytes Slight Sodium 138 Potassium 3.7 Chloride 106 Carbon Dioxide 18 L Anion Gap 18 BUN 50 H Creatinine 1.8 H Est GFR ( Amer) 44 Est GFR (Non-Af Amer) 37 POC Glucose (mg/dL) 98 Random Glucose 102 Calcium 8.6 Total Bilirubin 0.6 AST 102 H ALT 105 H D Alkaline Phosphatase 198 H D Total Protein 6.3 Albumin 3.3 L Globulin 3.0 Albumin/Globulin Ratio 1.1 Hepatitis A IgM Ab Hep Bs Antigen Hep B Core IgM Ab Hepatitis C Antibody Ur L.pneumophila Ag 07/22/18 07/22/18 07:03 10:08 WBC RBC Hgb Hct MCV MCH MCHC RDW Plt Count MPV Neut % (Auto) Lymph % (Auto) [place] % (Auto) Eos % (Auto) Baso % (Auto) Neut # (Auto) Lymph # (Auto) [place] # (Auto) Eos # (Auto) Baso # (Auto) Neutrophils % (Manual) Band Neutrophils % Lymphocytes % (Manual) Monocytes % (Manual) Toxic Granulation Platelet Estimate Polychromasia Hypochromasia (manual) Poikilocytosis (manual Anisocytosis (manual) Ovalocytes Lis Cells Schistocytes Sodium Potassium Chloride Carbon Dioxide Anion Gap BUN Creatinine Est GFR ( Amer) Est GFR (Non-Af Amer) POC Glucose (mg/dL) 127 H Random Glucose Calcium Total Bilirubin AST ALT Alkaline Phosphatase Total Protein Albumin Globulin Albumin/Globulin Ratio Hepatitis A IgM Ab Negative Hep Bs Antigen Negative Hep B Core IgM Ab Negative Hepatitis C Antibody Negative Ur L.pneumophila Ag Assessment & Plan - Assessment and Plan (Free Text) Assessment: 77 yr old M with DM, HTN, prostate CA history admitted with altered mental status due to infection on antibiotics with new elevation of transminases and alk Po. Likely medication induced as its both cholestatic pattern and parenchymal injury acutely. will get RUQ sonogram and hepatitis panel. Will change statin to pravastatin. Normal synthetic function. Plan: - RUQ sonogram to rule out biliary cause - hepatitis panel - diet as tolerated - avoid hepatotoxic meds - Rocephin may have given liver injury - Trend daily LFT - will follow
--- NOTE | 2018-07-22 13:51 | CON ---
DATE: 07/21/2018 NEUROLOGY CONSULTATION CHIEF COMPLAINT: Dizziness. HISTORY OF PRESENT ILLNESS: This 77-year-old man with history of arthritis, diabetes, hypertension, history of malignancy in the past, who presented to the hospital with dizziness, with headache. He stated that prior to hospital he felt lightheaded. He went to sit down, but fell forward and hit the front of his head sustaining an abrasion and he fell on the carpeted floor. The patient was found to have acute kidney injury, likely prerenal, was on hydrochlorothiazide and diclofenac and also has poor p.o. intake initially; therefore, Nephrology was on board and had adjusted his medications and recommended IV fluids. His CAT scan of the head showed no acute intracranial abnormality. He underwent a chest x-ray, which showed some biapical pleural thickening, bilateral lower lobe consolidations in addition to mid to left lower lobe opacity measuring about 5.6 x 4, possibly consolidation or neoplasm, which he underwent a CAT scan of the chest, which results are pending. Really, no dizziness except for a mild headache. PAST MEDICAL HISTORY: On board. SOCIAL HISTORY: No illicit drug abuse, smoking, or EtOH abuse. ALLERGIES: NO KNOWN DRUG ALLERGIES. MEDICATIONS: Reviewed by nurse reconciliation sheet. FAMILY HISTORY: Noncontributory. REVIEW OF SYSTEMS: A 12-point review of systems negative except in the HPI. LABORATORY DATA: Sodium is 138, potassium 3.7, chloride 106, carbon dioxide 18, BUN of 50, creatinine 1.8. He has elevated LFTs. PHYSICAL EXAMINATION: GENERAL: The patient is sitting up in bed, in no acute distress. VITAL SIGNS: Temperature 99.5, pulse rate is 86, blood pressure 148/71, respiratory rate 20, and oxygen saturation 98% on room air. HEENT: Atraumatic, normocephalic. PERRLA. Extraocular muscles are intact. NECK: Supple. No JVD. No adenopathy noted. LUNGS: Clear to auscultation. No adventitious sounds. HEART: S1 and S2. Normal rate and rhythm. No murmur, rubs, or gallops. ABDOMEN: Soft, nontender, and nondistended. Bowel sounds are present. EXTREMITIES: No clubbing. No cyanosis. Peripheral pulses are 2+ bilaterally. NEUROLOGIC: The patient is alert and oriented to person, place, month, and year. Speech is fluent without any errors. Cranial nerves II through XII are intact. Motor exam: Moves all extremities equally. No pronator drift seen. Sensory exam: Decreased light touch to pinprick up to the calves bilaterally, decreased vibration of the toes. DTRs are 2+ throughout and 1 at both knees and ankles. Coordination: [id number] intact. No dysmetria noted for now. ASSESSMENT AND PLAN: This is a 77-year-old man with past medical history of diabetes, arthritis, hypertension, remotely, who came in, was dizzy, and fell forward on the carpeted floor, hit his head, developed a mild tension-based headache with emphatic phenomena. CAT scan of the head showed generalized atrophy. No acute intracranial abnormalities. His chest x-ray showed some bilateral low consolidations and a questionable left lower lobe possible mass, which he is undergoing a CAT scan of the chest; otherwise, he has mild lightheadedness, but no spin sensation of the room. His dizziness is likely secondary to poor p.o. intake, deconditioning in addition to possibly elevation of the component, superimposed only metabolic derangements in terms of acute kidney injury. At this time, recommend: 1. IV fluids. 2. PT/OT for bouts of coordination exercises. 3. P.r.n. Fioricet every 6 hours with acute onset of the headache. 4. Monitor electrolytes accordingly. 5. Continue antibiotics with regards to his left lower lobe consolidation. He is clinically stable. Kamran Leahy MD
--- NOTE | 2018-07-22 14:09 | CT ---
Date of service: 07/22/2018 PROCEDURE: CT Chest without contrast HISTORY: mass COMPARISON: Plain radiographs from 07/20/2018 TECHNIQUE: Contiguous axial images were obtained through the chest without intravenous contrast enhancement. Sagittal and coronal reconstructions were performed. Radiation dose (DLP): 417.72 mGy-cm. This CT exam was performed using one or more of the following dose reduction techniques: Automated exposure control, adjustment of the mA and/or kV according to patient size, and/or use of iterative reconstruction technique. FINDINGS: LUNGS: There are multiple ill-defined variable size nodules in left upper lobe. There is dense consolidation with air bronchogram in the lingula. There is a 2 mm nodule in the peripheral right upper lobe. There is ill-defined airspace disease in the right middle and lower lobes. There is subsegmental atelectasis in the left lower lobe. There are no endobronchial lesions. MEDIASTINUM: No thoracic aneurysm. Normal sized heart. Main pulmonary artery unremarkable. No vascular congestion. Subcentimeter mediastinal lymph nodes are likely reactive. PLEURA: Loculated right pleural effusion and small left pleural effusion. No pneumothorax. BONES: No fracture. No destructive lesion. Diffuse bone demineralization and multilevel degenerative changes in the lower thoracic spine. UPPER ABDOMEN: Grossly unremarkable. OTHER FINDINGS: None. IMPRESSION: Multiple ill-defined variable size nodules in the left upper lobe and dense consolidation with air bronchogram in the lingula. Findings may represent pneumonia and infectious/inflammatory nodules in the right upper lobe however neoplasm with metastatic nodules is also a differential consideration. Follow-up after medical management is recommended to ensure complete resolution. Loculated right pleural effusion and small left pleural effusion.
--- NOTE | 2018-07-22 15:12 | US ---
Date of service: 07/22/2018 HISTORY: Elevated liver tests COMPARISON: None. TECHNIQUE: Sonographic evaluation of the abdomen. FINDINGS: LIVER: Measures 13.9 cm. There is diffuse increased echogenicity of the liver parenchyma. No mass. No intrahepatic bile duct dilatation. GALLBLADDER: There are no gallstones, wall thickening or pericholecystic fluid. The sonographic Reyes's sign is negative. There is sludge large within the gallbladder. COMMON BILE DUCT: Measures 2.7 mm. No stones. No dilatation. PANCREAS: Unremarkable as visualized. No mass. No ductal dilatation. RIGHT KIDNEY: Measures 8.6cm. Normal echogenicity. No calculus, mass, or hydronephrosis. LEFT KIDNEY: Measures 9.5cm. Normal echogenicity. No calculus, mass, or hydronephrosis. There is a 1.2 cm simple cyst in the lower pole and 2.0 cm simple cyst in the interpolar region. SPLEEN: Normal in size and contour. No mass. AORTA: No aneurysmal dilatation. IVC: Unremarkable. OTHER FINDINGS: None. IMPRESSION: Diffuse increased echogenicity in the liver may reflect hepatic steatosis however parenchymal infectious/ inflammatory etiologies cannot be entirely excluded. Clinical and laboratory correlation is advised. No cholelithiasis or biliary dilatation.
[2018-07-22] MEDS: Sodium Chloride 0.45% 1,000 ML IV SCH (19:34)
--- NOTE | 2018-07-22 22:15 | CP.PCM.PN ---
Subjective - Date & Time of Evaluation Date of Evaluation: 07/22/18 Time of Evaluation: 13:00 - Subjective Subjective: renal follow up note no events overnight vss gen: nad sclera: anicteric peerla op: clear poor dentition neck: supple cv: +s1+s2 no rub lungs: coarse bs w/ rales b/l abd: soft ntnd no organomegaly ext: no edema neuro: a+ox3 no focal deficit th psych: nml affect skin: abrasion on head labs and imaging reviewed imp: ARF/ hypokalemia/ Pneumonia/ Anemia / hypertension plan: ADEN - likely prerenal - was on hctz + diclofenac also as outpt w/ poor po intake - improving w/ abx and gentle hydration. Will continue fluids a lytes reviewed potassium improved on abx - dose for reduced eGFR avoid iv contrast until renal function improves anemia work up per primary team - unlikely to be renal related if all acute kidney injury. continue to hold acei. Objective - Vital Signs/Intake and Output Vital Signs (last 24 hours): Temp Pulse Resp BP Pulse Ox 98.1 F 87 20 160/78 H 94 L 07/22/18 16:00 07/22/18 16:00 07/22/18 16:00 07/22/18 16:00 07/22/18 16:00 Intake and Output: 07/22/18 07/23/18 18:59 06:59 Intake Total 1020 Balance 1020 - Medications Medications: Current Medications Dextrose (Dextrose 50% Inj) 0 ml IV STAT PRN; Protocol PRN Reason: Hypoglycemia Protocol Dextrose (Glutose 15) 0 gm PO ONCE PRN; Protocol PRN Reason: Hypoglycemia Protocol Enoxaparin Sodium (Lovenox) 30 mg SC DAILY [facility] Last Admin: 07/22/18 09:50 Dose: 30 mg Finasteride (Proscar) 5 mg PO DAILY [facility] Last Admin: 07/22/18 09:58 Dose: 5 mg Finasteride (Proscar) 5 mg PO DAILY [facility] Last Admin: 07/22/18 09:58 Dose: Not Given Glucagon (Glucagen Diagnostic Kit) 0 mg IM STAT PRN; Protocol PRN Reason: Hypoglycemia Protocol Sodium Chloride (Sodium Chloride 0.45%) 1,000 mls @ 40 mls/hr IV .Q24H [facility] Last Admin: 07/22/18 19:34 Dose: 40 mls/hr Dextrose (Dextrose 5% In Water 1000 Ml) 1,000 mls @ 0 mls/hr IV .Q0M PRN; Protocol; Per Protocol PRN Reason: Hypoglycemia Protocol Ceftriaxone Sodium 1 gm/ (Sodium Chloride) 100 mls @ 200 mls/hr IVPB Q12H [facility] PRN Reason: Protocol Last Admin: 07/22/18 19:29 Dose: 200 mls/hr Linezolid (Zyvox 600mg/300ml D5w) 600 mg in 300 mls @ 200 mls/hr IVPB Q12H [facility] PRN Reason: Protocol Last Admin: 07/22/18 19:32 Dose: 200 mls/hr Insulin Human Regular (Novolin R) 0 unit SC ACHS [facility] Last Admin: 07/22/18 21:30 Dose: Not Given Levothyroxine Sodium (Synthroid) 50 mcg PO DAILY@0630 [facility] Last Admin: 07/22/18 05:30 Dose: 50 mcg Pantoprazole Sodium (Protonix Ec Tab) 40 mg PO DAILY [facility] Last Admin: 07/22/18 09:50 Dose: 40 mg Pneumococcal Polyvalent Vaccine (Pneumovax 23 Vaccine) 0.5 ml IM .ONCE ONE Stop: 07/23/18 10:01 Promethazine HCl/Dextromethorphan (Phenergan Dm Syrup) 5 ml PO Q6H PRN PRN Reason: Cough Rosuvastatin Calcium (Crestor) 20 mg PO HS [facility] Last Admin: 07/22/18 21:36 Dose: 20 mg Fluticasone/Salmeterol (Advair Diskus 250/50) 1 puff IH RBID [facility] Last Admin: 07/22/18 07:58 Dose: Not Given Tamsulosin HCl (Flomax) 0.4 mg PO DAILY [facility] Last Admin: 07/22/18 09:50 Dose: 0.4 mg - Labs Labs: 07/22/18 06:28 07/22/18 06:28 PT 12.7 SECONDS (9.7-12.2) H 07/20/18 14:41 INR 1.2 07/20/18 14:41 APTT 25 SECONDS (21-34) 07/20/18 14:41
[2018-07-23] MEDS: Levothyroxine 50 MCG TAB PO SCH (05:50)
[2018-07-23 07:24] LABS: BASO % 0.1 % (0.0-2.0); EOS # 0.1 K/uL (0.0-0.7); EOS % 0.8 % (0.0-4.0); HEMOGLOBIN 8.6 g/dL (12.0-18.0); LYMPH # 0.6 K/uL (1.0-4.3); LYMPH % 4.9 % (20.0-40.0); MEAN CELL VOLUME 86.4 fL (80.0-94.0); MEAN CORPUSCULAR HEMOGLOBIN 29.7 pg (27.0-31.0); MEAN CORPUSCULAR HGB CONC 34.4 g/dL (33.0-37.0); MEAN PLATELET VOLUME 7.7 fL (7.2-11.7); MONO # 0.9 K/uL (0.0-0.8); MONO % 7.2 % (0.0-10.0); NEUT # 10.9 K/uL (1.8-7.0); PLATELET COUNT 302 K/uL (130-400); RBC 2.89 Mil/uL (4.40-5.90); RED CELL DISTRIBUTION WIDTH 15.2 % (11.5-14.5); WHITE BLOOD COUNT 12.5 K/uL (4.8-10.8)
[2018-07-23 07:35] LABS: ALBUMIN 2.8 g/dL (3.5-5.0); CALCIUM 8.2 mg/dl (8.6-10.4)
[2018-07-23] MEDS: Fluticasone-Salmeterol 250-50mcg Diskus IH SCH ×2 (08:19→21:31)
[2018-07-23] MEDS: (Novolin R) Insulin Human Regular 100 units/ml vial SC SCH ×4 (08:30→22:09)
[2018-07-23] MEDS: LIPASE/PROTEASE/AMYLASE 21,000 U ECC PO SCH ×3 (08:56→17:32)
[2018-07-23] MEDS: Linezolid 600 mg in D5W 300 ml 600 MG/300 ML BAG IVPB SCH ×2 (08:57→19:56)
[2018-07-23 08:58] LABS: BANDS 3 % (0-2); LYMPHOCYTE 3 % (20-40); MONOCYTE 7 % (0-10); NEUTROPHIL 87 % (50-75); PLATELET ESTIMATE NORMAL (NORMAL); TOTAL CELLS COUNTED 100
[2018-07-23 08:59] LABS: ANISOCYTOSIS SLIGHT; BURR CELLS SLIGHT; HYPOCHROMIC SLIGHT; POIKILOCYTOSIS SLIGHT; POLYCHROMIC SLIGHT; TOXIC GRANULATION PRESENT
[2018-07-23 09:00] LABS: LARGE PLATELETS PRESENT; PLATELET CLUMPS PRESENT
[2018-07-23 09:01] LABS: OVALOCYTES SLIGHT
[2018-07-23] MEDS ORDERED: Pneumococcal 23-Valent Vaccine IM ONE (10:00)
[2018-07-23] MEDS: Pantoprazole 40 mg EC Tab PO SCH (10:35)
[2018-07-23] MEDS: Enoxaparin 30 mg Syringe SC SCH (10:36)
--- NOTE | 2018-07-23 10:46 | CP.PCM.PN ---
Subjective - Date & Time of Evaluation Date of Evaluation: 07/23/18 Time of Evaluation: 08:00 - Subjective Subjective: Patient seen at bedside. No overnight events. On antibiotics for UTI sepsis. LFt downtrending. Hepatitis panel negative Objective - Vital Signs/Intake and Output Vital Signs (last 24 hours): Temp Pulse Resp BP Pulse Ox 97.9 F 86 20 149/65 95 07/23/18 08:00 07/23/18 08:00 07/23/18 08:00 07/23/18 08:00 07/23/18 08:00 Intake and Output: 07/23/18 07/23/18 06:59 18:59 Intake Total 1570 Output Total 400 Balance 1170 - Medications Medications: Current Medications Dextrose (Dextrose 50% Inj) 0 ml IV STAT PRN; Protocol PRN Reason: Hypoglycemia Protocol Dextrose (Glutose 15) 0 gm PO ONCE PRN; Protocol PRN Reason: Hypoglycemia Protocol Enoxaparin Sodium (Lovenox) 30 mg SC DAILY [facility] Last Admin: 07/23/18 10:36 Dose: 30 mg Finasteride (Proscar) 5 mg PO DAILY [facility] Last Admin: 07/23/18 10:43 Dose: 5 mg Finasteride (Proscar) 5 mg PO DAILY [facility] Last Admin: 07/23/18 10:37 Dose: Not Given Glucagon (Glucagen Diagnostic Kit) 0 mg IM STAT PRN; Protocol PRN Reason: Hypoglycemia Protocol Sodium Chloride (Sodium Chloride 0.45%) 1,000 mls @ 40 mls/hr IV .Q24H [facility] Last Admin: 07/22/18 19:34 Dose: 40 mls/hr Dextrose (Dextrose 5% In Water 1000 Ml) 1,000 mls @ 0 mls/hr IV .Q0M PRN; Protocol; Per Protocol PRN Reason: Hypoglycemia Protocol Ceftriaxone Sodium 1 gm/ (Sodium Chloride) 100 mls @ 200 mls/hr IVPB Q12H [facility] PRN Reason: Protocol Last Admin: 07/23/18 06:00 Dose: 200 mls/hr Linezolid (Zyvox 600mg/300ml D5w) 600 mg in 300 mls @ 200 mls/hr IVPB Q12H [facility] PRN Reason: Protocol Last Admin: 07/23/18 08:57 Dose: 200 mls/hr Insulin Human Regular (Novolin R) 0 unit SC ACHS [facility] Last Admin: 07/23/18 08:30 Dose: Not Given Levothyroxine Sodium (Synthroid) 50 mcg PO DAILY@0630 [facility] Last Admin: 07/23/18 05:50 Dose: 50 mcg Pantoprazole Sodium (Protonix Ec Tab) 40 mg PO DAILY [facility] Last Admin: 07/23/18 10:35 Dose: 40 mg Promethazine HCl/Dextromethorphan (Phenergan Dm Syrup) 5 ml PO Q6H PRN PRN Reason: Cough Rosuvastatin Calcium (Crestor) 20 mg PO HS [facility] Last Admin: 07/22/18 21:36 Dose: 20 mg Fluticasone/Salmeterol (Advair Diskus 250/50) 1 puff IH RBID [facility] Last Admin: 07/22/18 07:58 Dose: Not Given Tamsulosin HCl (Flomax) 0.4 mg PO DAILY [facility] Last Admin: 07/23/18 10:36 Dose: 0.4 mg - Labs Labs: 07/23/18 07:10 07/23/18 07:10 PT 12.7 SECONDS (9.7-12.2) H 07/20/18 14:41 INR 1.2 07/20/18 14:41 APTT 25 SECONDS (21-34) 07/20/18 14:41 - Constitutional Appears: Well - Head Exam Head Exam: ATRAUMATIC, NORMAL INSPECTION, NORMOCEPHALIC - Eye Exam Eye Exam: EOMI, Normal appearance, PERRL - ENT Exam ENT Exam: Mucous Membranes Moist, Normal Exam - Respiratory Exam Respiratory Exam: Clear to Ausculation Bilateral, NORMAL BREATHING PATTERN - Cardiovascular Exam Cardiovascular Exam: REGULAR RHYTHM, +S1, +S2. absent: Murmur - GI/Abdominal Exam GI & Abdominal Exam: Soft, Normal Bowel Sounds. absent: Tenderness - Neurological Exam Neurological Exam: Alert, Awake Assessment and Plan - Assessment and Plan (Free Text) Assessment: 77 yr old M with DM, HTN, prostate CA history admitted with altered mental status due to infection on antibiotics with new elevation of transminases and alk Po which is downtrending. Likely medication induced as its both cholestatic pattern and parenchymal injury acutely. Plan: - RUQ sonogram to rule out biliary cause is negative for stones but positive for sludge - hepatitis panel negative - diet as tolerated - avoid hepatotoxic meds - Rocephin may have given liver injury - Trend daily LFT which is downtrending - will sign off - No further GI work up
[2018-07-23] MEDS ORDERED: Potassium Chloride 20 mEq ER Tab PO ONE (13:00)
--- NOTE | 2018-07-23 16:36 | CP.PCM.PN ---
Subjective - Date & Time of Evaluation Date of Evaluation: 07/23/18 Time of Evaluation: 08:00 - Subjective Subjective: MSSA in blood recc cardio eval / echo IV rx in progress Objective - Vital Signs/Intake and Output Vital Signs (last 24 hours): Temp Pulse Resp BP Pulse Ox 97.9 F 86 20 149/65 95 07/23/18 08:00 07/23/18 08:00 07/23/18 08:00 07/23/18 08:00 07/23/18 08:00 Intake and Output: 07/23/18 07/23/18 06:59 18:59 Intake Total 1570 900 Output Total 400 Balance 1170 900 - Medications Medications: Current Medications Dextrose (Dextrose 50% Inj) 0 ml IV STAT PRN; Protocol PRN Reason: Hypoglycemia Protocol Dextrose (Glutose 15) 0 gm PO ONCE PRN; Protocol PRN Reason: Hypoglycemia Protocol Enoxaparin Sodium (Lovenox) 30 mg SC DAILY [facility] Last Admin: 07/23/18 10:36 Dose: 30 mg Finasteride (Proscar) 5 mg PO DAILY [facility] Last Admin: 07/23/18 10:43 Dose: 5 mg Finasteride (Proscar) 5 mg PO DAILY [facility] Last Admin: 07/23/18 10:37 Dose: Not Given Glucagon (Glucagen Diagnostic Kit) 0 mg IM STAT PRN; Protocol PRN Reason: Hypoglycemia Protocol Sodium Chloride (Sodium Chloride 0.45%) 1,000 mls @ 40 mls/hr IV .Q24H [facility] Last Admin: 07/22/18 19:34 Dose: 40 mls/hr Dextrose (Dextrose 5% In Water 1000 Ml) 1,000 mls @ 0 mls/hr IV .Q0M PRN; Protocol; Per Protocol PRN Reason: Hypoglycemia Protocol Ceftriaxone Sodium 1 gm/ (Sodium Chloride) 100 mls @ 200 mls/hr IVPB Q12H [facility] PRN Reason: Protocol Last Admin: 07/23/18 06:00 Dose: 200 mls/hr Linezolid (Zyvox 600mg/300ml D5w) 600 mg in 300 mls @ 200 mls/hr IVPB Q12H [facility] PRN Reason: Protocol Last Admin: 07/23/18 08:57 Dose: 200 mls/hr Insulin Human Regular (Novolin R) 0 unit SC ACHS [facility] Last Admin: 07/23/18 12:08 Dose: Not Given Levothyroxine Sodium (Synthroid) 50 mcg PO DAILY@0630 [facility] Last Admin: 07/23/18 05:50 Dose: 50 mcg Pantoprazole Sodium (Protonix Ec Tab) 40 mg PO DAILY [facility] Last Admin: 07/23/18 10:35 Dose: 40 mg Promethazine HCl/Dextromethorphan (Phenergan Dm Syrup) 5 ml PO Q6H PRN PRN Reason: Cough Rosuvastatin Calcium (Crestor) 20 mg PO HS [facility] Last Admin: 07/22/18 21:36 Dose: 20 mg Fluticasone/Salmeterol (Advair Diskus 250/50) 1 puff IH RBID [facility] Last Admin: 07/23/18 08:19 Dose: Not Given Tamsulosin HCl (Flomax) 0.4 mg PO DAILY [facility] Last Admin: 07/23/18 10:36 Dose: 0.4 mg - Labs Labs: 07/23/18 07:10 07/23/18 07:10 PT 12.7 SECONDS (9.7-12.2) H 07/20/18 14:41 INR 1.2 07/20/18 14:41 APTT 25 SECONDS (21-34) 07/20/18 14:41 - Constitutional Appears: Non-toxic, Chronically Ill - Head Exam Head Exam: NORMOCEPHALIC - Eye Exam Eye Exam: PERRL - ENT Exam ENT Exam: Mucous Membranes Dry - Neck Exam Neck Exam: absent: Lymphadenopathy - Respiratory Exam Respiratory Exam: Decreased Breath Sounds, Rhonchi - Cardiovascular Exam Cardiovascular Exam: REGULAR RHYTHM, +S1, +S2 - GI/Abdominal Exam GI & Abdominal Exam: Distended, Soft Assessment and Plan (1) Bacteremia Status: Acute (2) Pneumonia Status: Acute - Assessment and Plan (Free Text) Assessment: MSSA in blood recc cardio eval / echo IV rx in progress
[2018-07-23] MEDS: Sodium Chloride 0.45% 1,000 ML IV SCH (20:52)
[2018-07-24] MEDS: Levothyroxine 50 MCG TAB PO SCH (05:41)
[2018-07-24 06:46] LABS: BASO # 0.1 K/uL (0.0-0.2); BASO % 0.4 % (0.0-2.0); EOS # 0.1 K/uL (0.0-0.7); EOS % 0.4 % (0.0-4.0); HEMOGLOBIN 8.1 g/dL (12.0-18.0); LYMPH # 0.5 K/uL (1.0-4.3); LYMPH % 3.7 % (20.0-40.0); MEAN CELL VOLUME 86.8 fL (80.0-94.0); MEAN CORPUSCULAR HGB CONC 33.4 g/dL (33.0-37.0); MEAN PLATELET VOLUME 7.8 fL (7.2-11.7); MONO # 0.7 K/uL (0.0-0.8); MONO % 5.4 % (0.0-10.0); NEUT # 11.2 K/uL (1.8-7.0); NEUT % 90.1 % (50.0-75.0); NRBC % 0.1 % (0.0-2.0); PLATELET COUNT 320 K/uL (130-400); RED CELL DISTRIBUTION WIDTH 15.1 % (11.5-14.5); WHITE BLOOD COUNT 12.5 K/uL (4.8-10.8)
[2018-07-24 07:19] LABS: ALBUMIN 2.8 g/dL (3.5-5.0); CALCIUM 8.1 mg/dl (8.6-10.4)
[2018-07-24 08:19] LABS: ANISOCYTOSIS SLIGHT; BURR CELLS SLIGHT; HYPOCHROMIC SLIGHT; LYMPHOCYTE 2 % (20-40); MONOCYTE 4 % (0-10); NEUTROPHIL 94 % (50-75); OVALOCYTES SLIGHT; PLATELET ESTIMATE NORMAL (NORMAL); POIKILOCYTOSIS SLIGHT; TOTAL CELLS COUNTED 100
[2018-07-24 08:20] LABS: TARGET CELLS SLIGHT
[2018-07-24] MEDS: (Novolin R) Insulin Human Regular 100 units/ml vial SC SCH ×4 (08:29→21:30)
[2018-07-24] MEDS: Linezolid 600 mg in D5W 300 ml 600 MG/300 ML BAG IVPB SCH (08:38)
[2018-07-24] MEDS: LIPASE/PROTEASE/AMYLASE 21,000 U ECC PO SCH ×3 (08:38→17:47)
--- NOTE | 2018-07-24 08:40 | CON ---
DATE: 07/21/2018 HISTORY OF PRESENT ILLNESS: This is 77-year-old male with past medical history, came here with complaint of dizziness, headache, and the patient fell and hit his head and had abrasion on the head and no loss of consciousness. Called to evaluate the patient. PAST MEDICAL HISTORY: As above. SOCIAL HISTORY: Does not smoke, does not drink. A 77-year-old male who felt lightheaded and fell on the carpeted floor and had abrasion on the head and also has a bronchitis. ALLERGIES: NO KNOWN DRUG ALLERGIES. PHYSICAL EXAMINATION HEENT: Normocephalic and atraumatic. NECK: Trauma to the right side of the forehead. NEUROLOGIC: No facial asymmetry. Tongue is midline. Motor examination: Moves all the extremities equally. Spontaneously deep tendon reflexes are 1+. Both plantars are downgoing. Sensory appears intact. Cerebellar and gait deferred. IMPRESSION: Syncope, less likely seizure. CAT scan of the head was done which did not show any bleed, only atrophy, and found to have bacteremia and pneumonia and on antibiotics. Continue present management. We will follow up. Eriberto Leahy MD
--- NOTE | 2018-07-24 09:17 | PN ---
DATE: 07/23/2018 SUBJECTIVE: He is sitting up in the bed. He is trying a little bit of lunch. He is pleasant. He has no chest pain, shortness of breath, or abdominal pain at this time. He walks with a walker with his brother this morning. PHYSICAL EXAMINATION: VITAL SIGNS: He has 97.9 temp, 86 pulse, 149/55 blood pressure, 20 respiratory rate, 95% O2 sat on room air. HEENT: Head is atraumatic and normocephalic. CARDIOPULMONARY: Regular rate. LUNGS: Decreased breath sounds, but fairly clear bilaterally. ABDOMEN: Soft. Nontender. Positive bowel sounds. EXTREMITIES: No edema. MEDICATIONS: He is currently on Advair, Rocephin, Crestor, dextrose, Flomax, glucagon,, Lovenox, Novolin, Phenergan DM, Proscar, Protonix IV fluids, Synthroid, Zyvox. He has 12.5 white count, the best it has been so far, hemoglobin, went down a little bit, hematocrit 25, platelets 302. Sodium 167, potassium 3.3. I gave him potassium today to replace it. BUN 36, creatinine 1.7, this was getting better with gentle hydration. Blood sugars 120, calcium is 8.2, total bili is 0.5, AST is 81, ALT is 92, alk phos 179 a little bit better, total protein is 5.8. He is being seen by GI, Infectious Disease, Neurology and waiting for Pulmonary to see him, also renal. He has been improving. He had an abdominal ultrasound, which showed diffuse increased echogenicity in the liver, may be hepatic steatosis versus infectious inflammatory etiology. He also had a CAT scan of the chest and the readings are multiple ill-defined variable size nodules on the left upper lobe and dense consolidation with air bronchograms of the lingula, may represent pneumonia and infectious inflammatory nodules on the right upper lobe; however, neoplasm with metastatic nodules was also a different consideration. Continue with IV antibiotics, await pulmonary eval. We will check his labs tomorrow and get out of bed to chair everyday. ASSESSMENT AND PLAN: Pneumonia, acute kidney injury and elevated liver enzymes. Jose Elias Dumont DO [facility] # [id number] MTDD
[2018-07-24] MEDS: Pantoprazole 40 mg EC Tab PO SCH (10:03)
[2018-07-24] MEDS: Enoxaparin 30 mg Syringe SC SCH (10:03)
[2018-07-24] MEDS: Fluticasone-Salmeterol 250-50mcg Diskus IH SCH ×2 (10:08→19:58)
--- NOTE | 2018-07-24 10:53 | CP.PCM.PN ---
Subjective - Date & Time of Evaluation Date of Evaluation: 07/24/18 Time of Evaluation: 09:00 - Subjective Subjective: still spiking growing staph in blood- not MRSA echo sent await pulmonary eval ? post obst pneumonia- ? lung mass Objective - Vital Signs/Intake and Output Vital Signs (last 24 hours): Temp Pulse Resp BP Pulse Ox 99.8 F H 75 20 107/56 L 97 07/24/18 04:30 07/24/18 04:30 07/24/18 04:30 07/24/18 04:30 07/24/18 04:30 Intake and Output: 07/24/18 07/24/18 06:59 18:59 Intake Total 820 Output Total 200 Balance 620 - Medications Medications: Current Medications Dextrose (Dextrose 50% Inj) 0 ml IV STAT PRN; Protocol PRN Reason: Hypoglycemia Protocol Dextrose (Glutose 15) 0 gm PO ONCE PRN; Protocol PRN Reason: Hypoglycemia Protocol Enoxaparin Sodium (Lovenox) 30 mg SC DAILY [facility] Last Admin: 07/24/18 10:03 Dose: 30 mg Finasteride (Proscar) 5 mg PO DAILY [facility] Last Admin: 07/24/18 10:03 Dose: 5 mg Finasteride (Proscar) 5 mg PO DAILY [facility] Last Admin: 07/24/18 10:03 Dose: Not Given Glucagon (Glucagen Diagnostic Kit) 0 mg IM STAT PRN; Protocol PRN Reason: Hypoglycemia Protocol Sodium Chloride (Sodium Chloride 0.45%) 1,000 mls @ 40 mls/hr IV .Q24H [facility] Last Admin: 07/23/18 20:52 Dose: 40 mls/hr Dextrose (Dextrose 5% In Water 1000 Ml) 1,000 mls @ 0 mls/hr IV .Q0M PRN; Protocol; Per Protocol PRN Reason: Hypoglycemia Protocol Piperacillin Sod/Tazobactam (Sod 3.375 gm/ Sodium Chloride) 100 mls @ 200 mls/ hr IVPB Q6H [facility] PRN Reason: Protocol Insulin Human Regular (Novolin R) 0 unit SC ACHS [facility] Last Admin: 07/24/18 08:29 Dose: Not Given Levothyroxine Sodium (Synthroid) 50 mcg PO DAILY@0630 [facility] Last Admin: 07/24/18 05:41 Dose: 50 mcg Pantoprazole Sodium (Protonix Ec Tab) 40 mg PO DAILY [facility] Last Admin: 07/24/18 10:03 Dose: 40 mg Promethazine HCl/Dextromethorphan (Phenergan Dm Syrup) 5 ml PO Q6H PRN PRN Reason: Cough Rosuvastatin Calcium (Crestor) 20 mg PO HS [facility] Last Admin: 07/23/18 21:07 Dose: 20 mg Fluticasone/Salmeterol (Advair Diskus 250/50) 1 puff IH RBID [facility] Last Admin: 07/24/18 10:08 Dose: 1 puff Tamsulosin HCl (Flomax) 0.4 mg PO DAILY [facility] Last Admin: 07/24/18 10:03 Dose: 0.4 mg - Labs Labs: 07/24/18 06:32 07/24/18 06:32 PT 12.7 SECONDS (9.7-12.2) H 07/20/18 14:41 INR 1.2 07/20/18 14:41 APTT 25 SECONDS (21-34) 07/20/18 14:41 - Constitutional Appears: Non-toxic, Chronically Ill - Head Exam Head Exam: NORMOCEPHALIC - Eye Exam Eye Exam: PERRL - ENT Exam ENT Exam: Mucous Membranes Dry - Neck Exam Neck Exam: absent: Lymphadenopathy - Respiratory Exam Respiratory Exam: Decreased Breath Sounds - Cardiovascular Exam Cardiovascular Exam: REGULAR RHYTHM, +S1, +S2 - GI/Abdominal Exam GI & Abdominal Exam: Distended, Soft - Rectal Exam Rectal Exam: Deferred - Exam Exam: NORMAL INSPECTION - Extremities Exam Extremities Exam: absent: Pedal Edema - Back Exam Back Exam: absent: CVA tenderness (L), CVA tenderness (R) - Neurological Exam Neurological Exam: Alert, Awake, Oriented x3 - Psychiatric Exam Psychiatric exam: Depressed Assessment and Plan (1) Bacteremia Status: Acute (2) Pneumonia Status: Acute - Assessment and Plan (Free Text) Assessment: still spiking growing staph in blood- not MRSA echo sent await pulmonary eval ? post obst pneumonia- ? lung mass on Zosyn cultures repeated await Pulm eval
--- NOTE | 2018-07-24 11:38 | CARD ---
APPROVED REPORT Date of service: 07/20/2018 EKG Measurement Heart [id number] <Conclusion> Normal sinus rhythm Possible Left atrial enlargement Borderline ECG
[2018-07-24] MEDS: Piperacillin/Tazobact 3.375 GM in Sodium Chloride 100 ML IVPB SCH ×3 (11:46→23:16)
[2018-07-24] MEDS: Sodium Chloride 0.9% 1,000 ML IV SCH (11:46)
--- NOTE | 2018-07-24 11:50 | PN ---
DATE: 07/24/2018 SUBJECTIVE: I saw him in bed this morning. I was told by the nurse he had a 103 plus temperature last night. We gave him ice packs. It came down. He is not feeling that well this morning. He is on IV fluids, Zyvox, Synthroid, Protonix, Proscar, Novolin, Lovenox, Flomax, Crestor, Rocephin, and Advair. His yesterday's labs revealed replaced potassium and his blood sugar was 133. Waiting for labs to come in today. Yesterday's white count was 12.5, coming down. Hopefully, it will continue with hemoglobin did drop to 8.6. If it goes below 8, we will transfuse him. I will request to call the Cardiology because he has Staph aureus in the blood. We have to make sure there is no vegetation in his heart and 2D echo involved. 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 Await labs this morning, check labs tomorrow, physical therapy also subacute rehab, so he might eventually get to a subacute rehab as per his brother. Most likely, he will go to [facility]. Continue the aggressive treatment and care. He has an elevated temperature of 103, sepsis, possible lung mass, acute kidney injury, diabetes, anemia, high LFTs, and now again a temperature of 103. We are checking an echo and consulting Cardiology. Antonio Dumont DO MTDBarb
[2018-07-24] MEDS ORDERED: Potassium Chloride 20 mEq ER Tab PO ONE (12:14)
[2018-07-24 14:26] LABS: BASO % 0.2 % (0.0-2.0); EOS # 0.2 K/uL (0.0-0.7); EOS % 1.7 % (0.0-4.0); HEMOGLOBIN 8.6 g/dL (12.0-18.0); LYMPH # 0.5 K/uL (1.0-4.3); LYMPH % 5.3 % (20.0-40.0); MEAN CELL VOLUME 85.9 fL (80.0-94.0); MEAN CORPUSCULAR HEMOGLOBIN 30.2 pg (27.0-31.0); MEAN CORPUSCULAR HGB CONC 35.1 g/dL (33.0-37.0); MEAN PLATELET VOLUME 7.4 fL (7.2-11.7); MONO # 0.8 K/uL (0.0-0.8); MONO % 7.8 % (0.0-10.0); NEUT # 8.5 K/uL (1.8-7.0); PLATELET COUNT 336 K/uL (130-400); RBC 2.84 Mil/uL (4.40-5.90); RED CELL DISTRIBUTION WIDTH 15.2 % (11.5-14.5)
[2018-07-24 14:49] LABS: COMPLEMENT C4 32.3 mg/dL (14.0-44.0)
[2018-07-24 14:50] LABS: IRON 13 ug/dL (49-181)
[2018-07-24 14:55] LABS: ANISOCYTOSIS SLIGHT; BANDS 4 % (0-2); EOSINOPHIL 2 % (0-4); LYMPHOCYTE 4 % (20-40); MONOCYTE 6 % (0-10); NEUTROPHIL 82 % (50-75); PLATELET ESTIMATE NORMAL (NORMAL); REACTIVE LYMPHOCYTES 2 % (0-0); TOTAL CELLS COUNTED 100
[2018-07-24 14:56] LABS: HYPOCHROMIC SLIGHT; OVALOCYTES SLIGHT
[2018-07-24 15:01] LABS: % IRON SATURATION 8 (20-55); TOTAL IRON BINDING CAPACITY 171 ug/dL (250-450)
[2018-07-24 15:15] LABS: HEPATITIS B SURFACE AG Negative (NEGATIVE)
[2018-07-24 15:20] LABS: HEPATITIS B CORE AB NEGATIVE (NEGATIVE)
[2018-07-24 15:31] LABS: HIV 1&2 ANTIBODY NEGATIVE (NEGATIVE)
[2018-07-24 15:32] LABS: HEPATITIS C ANTIBODY NEGATIVE (NEGATIVE)
[2018-07-24 15:49] LABS: FOLATE > 20.0 ng/mL
--- NOTE | 2018-07-24 16:08 | CP.PCM.PN ---
Subjective - Date & Time of Evaluation Date of Evaluation: 07/24/18 Time of Evaluation: 16:02 - Subjective Subjective: Nephrology Consultation Note Assessment: Stable Acute Kidney Injury (N17.9) improving r/o underlying GN such as ANCA vasculitis : improved with IVF Anemia sepsis pneumonia simple kidney cyst DM, HTN, BPH Hypokalemia AMS ? dementia Plan No acute need for renal replacement therapy at this time. Hypertension control with meds as ordered. Maintain hemodynamics stable. Avoid hypotension. Patient not on ACEI/ARB due to recent ADEN Monitor Input/Output, daily weights and renal function with basic metabolic panel change 0.45% saline to NS 0.9% supplement lytes as needed Check urine analysis, spot protein/creatinine, albumin/creatinine ratio Check GN work up as VANIA/DNA ab, C3, C4, ANCA (MPO and [place]-3), Anti GBM antibody, HIV/Hep B and Hep C serology Anemia work up with TSAT/Ferritin/Vitamin B12/folate, serum protein electrophoresis with immunofixation, serum free light chain assay ([place]/Lambda) Check for 25-OH vitamin D, iPTH, phosphorus level. may need kidney biopsy, depending upon work up Dose meds/antibiotics for reduced GFR. Avoid fleets enema/magnesium based laxatives. Avoid nephrotoxins/NSAIDs/ iodinated contrast (unless needed emergently) Glycemic control Further work up for as per primary team Thanks for allowing me to participate in care of your patient. Will follow patient with you. Please call if any Qs. had d/w team Dr Per Negrete Office: [phone] Subjective: Noted events overnight. Patients feels okay. Denies chest pain, palpitation, shortness of breath, leg swelling. he is disoriented and unable to provide much reliable hx Physical Examination: General Appearance: Comfortable, in no acute respiratory distress, co-operative . Vitals reviewed and noted as below Head; Atraumatic, normocephalic ENT: no ulcers no thrush. Tongue is midline. Oropharynx: no rash or ulcers. EYES: Pupils are equal, round and reactive to light accommodation. Eye muscles and extraocular movement intact. Sclera is anicteric. Neck; supple no lymphadenopathy, no thyromegaly or bruit Lungs: Normal respiratory rate/effort. Breath sounds bilateral equal and basal crackle Heart: Normal rate. s1s2 normal. No rub or gallop. Extremities: no edema. No varicose veins Neurological: Patient is alert, awake and not oriented to person, place and time. No focal deficit. Strength bilateral appropriate and equal Skin: Warm and dry. Normal turgor. No rash. Palpitation: Normal elasticity for age Abdomen: Abdomen is soft. Bowel sounds +. There is no abdominal tenderness, no guarding/rigidity no organomegaly Psych: lack insight and normal affect/mood MSK: no joint tenderness or swelling. Digits and nails normal, no deformity : kidney or bladder not palpable Labs/imaging reviewed. Past medical history, past surgical history, family history, social history, allergy reviewed and noted as below Family hx: no hx of CKD. Rest non-contributory work up: CT chest : b/l nodule/infiltrate UA 30 protein and moderate blood imaging: kidneys WNL except left simple cyst Objective - Vital Signs/Intake and Output Vital Signs (last 24 hours): Temp Pulse Resp BP Pulse Ox 99.8 F H 75 20 107/56 L 97 07/24/18 04:30 07/24/18 04:30 07/24/18 04:30 07/24/18 04:30 07/24/18 04:30 Intake and Output: 07/24/18 07/24/18 06:59 18:59 Intake Total 820 Output Total 200 Balance 620 - Medications Medications: Current Medications Dextrose (Dextrose 50% Inj) 0 ml IV STAT PRN; Protocol PRN Reason: Hypoglycemia Protocol Dextrose (Glutose 15) 0 gm PO ONCE PRN; Protocol PRN Reason: Hypoglycemia Protocol Enoxaparin Sodium (Lovenox) 30 mg SC DAILY [facility] Last Admin: 07/24/18 10:03 Dose: 30 mg Finasteride (Proscar) 5 mg PO DAILY [facility] Last Admin: 07/24/18 10:03 Dose: 5 mg Finasteride (Proscar) 5 mg PO DAILY [facility] Last Admin: 07/24/18 10:03 Dose: Not Given Glucagon (Glucagen Diagnostic Kit) 0 mg IM STAT PRN; Protocol PRN Reason: Hypoglycemia Protocol Dextrose (Dextrose 5% In Water 1000 Ml) 1,000 mls @ 0 mls/hr IV .Q0M PRN; Protocol; Per Protocol PRN Reason: Hypoglycemia Protocol Piperacillin Sod/Tazobactam (Sod 3.375 gm/ Sodium Chloride) 100 mls @ 200 mls/ hr IVPB Q6H [facility] PRN Reason: Protocol Last Admin: 07/24/18 11:46 Dose: 200 mls/hr Sodium Chloride (Sodium Chloride 0.9%) 1,000 mls @ 75 mls/hr IV .[id number] [facility] Last Admin: 07/24/18 11:46 Dose: 75 mls/hr Insulin Human Regular (Novolin R) 0 unit SC ACHS [facility] Last Admin: 07/24/18 11:48 Dose: Not Given Levothyroxine Sodium (Synthroid) 50 mcg PO DAILY@0630 [facility] Last Admin: 07/24/18 05:41 Dose: 50 mcg Pantoprazole Sodium (Protonix Ec Tab) 40 mg PO DAILY [facility] Last Admin: 07/24/18 10:03 Dose: 40 mg Promethazine HCl/Dextromethorphan (Phenergan Dm Syrup) 5 ml PO Q6H PRN PRN Reason: Cough Rosuvastatin Calcium (Crestor) 20 mg PO HS [facility] Last Admin: 07/23/18 21:07 Dose: 20 mg Fluticasone/Salmeterol (Advair Diskus 250/50) 1 puff IH RBID [facility] Last Admin: 07/24/18 10:08 Dose: 1 puff Tamsulosin HCl (Flomax) 0.4 mg PO DAILY [facility] Last Admin: 07/24/18 10:03 Dose: 0.4 mg - Labs Labs: 07/24/18 14:14 07/24/18 06:32 PT 12.7 SECONDS (9.7-12.2) H 07/20/18 14:41 INR 1.2 07/20/18 14:41 APTT 25 SECONDS (21-34) 07/20/18 14:41
[2018-07-25] MEDS: Sodium Chloride 0.9% 1,000 ML IV SCH ×3 (01:21→14:59)
[2018-07-25] MEDS: Piperacillin/Tazobact 3.375 GM in Sodium Chloride 100 ML IVPB SCH ×4 (05:30→22:51)
[2018-07-25 06:26] LABS: BASO # 0.1 K/uL (0.0-0.2); BASO % 0.6 % (0.0-2.0); EOS # 0.2 K/uL (0.0-0.7); EOS % 1.4 % (0.0-4.0); LYMPH # 0.6 K/uL (1.0-4.3); MEAN CELL VOLUME 87.4 fL (80.0-94.0); MEAN CORPUSCULAR HEMOGLOBIN 29.8 pg (27.0-31.0); MEAN CORPUSCULAR HGB CONC 34.1 g/dL (33.0-37.0); MEAN PLATELET VOLUME 7.6 fL (7.2-11.7); MONO # 0.7 K/uL (0.0-0.8); MONO % 5.4 % (0.0-10.0); NEUT # 11.2 K/uL (1.8-7.0); NEUT % 87.6 % (50.0-75.0); PLATELET COUNT 372 K/uL (130-400); RBC 3.02 Mil/uL (4.40-5.90); RED CELL DISTRIBUTION WIDTH 15.5 % (11.5-14.5); WHITE BLOOD COUNT 12.8 K/uL (4.8-10.8)
[2018-07-25] MEDS: Levothyroxine 50 MCG TAB PO SCH (06:27)
[2018-07-25 06:37] LABS: CALCIUM 8.2 mg/dl (8.6-10.4)
[2018-07-25] MEDS: (Novolin R) Insulin Human Regular 100 units/ml vial SC SCH ×4 (08:30→22:06)
[2018-07-25] MEDS: LIPASE/PROTEASE/AMYLASE 21,000 U ECC PO SCH ×3 (08:31→18:08)
[2018-07-25 09:47] LABS: EOSINOPHIL 1 % (0-4); LYMPHOCYTE 4 % (20-40); MONOCYTE 5 % (0-10); NEUTROPHIL 88 % (50-75); PLATELET ESTIMATE NORMAL (NORMAL); REACTIVE LYMPHOCYTES 2 % (0-0); TOTAL CELLS COUNTED 100
[2018-07-25 09:48] LABS: ANISOCYTOSIS SLIGHT; HYPOCHROMIC SLIGHT
[2018-07-25] MEDS: Pantoprazole 40 mg EC Tab PO SCH (10:08)
[2018-07-25] MEDS: Enoxaparin 30 mg Syringe SC SCH (10:08)
--- NOTE | 2018-07-25 11:19 | CP.PCM.PN ---
Subjective - Date & Time of Evaluation Date of Evaluation: 07/25/18 Time of Evaluation: 11:19 - Subjective Subjective: Nephrology Consultation Note Assessment: Stable Acute Kidney Injury (N17.9) improving r/o underlying GN such as ANCA vasculitis: improved with IVF Anemia sepsis pneumonia simple kidney cyst DM, HTN, BPH Hypokalemia AMS ? dementia Plan No acute need for renal replacement therapy at this time. Hypertension control with meds as ordered. Maintain hemodynamics stable. Avoid hypotension. Patient not on ACEI/ARB due to recent ADEN Monitor Input/Output, daily weights and renal function with basic metabolic panel loweerd NS 0.9% to 50 ml/hr supplement lytes as needed started iron and MVI echo results pending Check urine analysis, spot protein/creatinine, albumin/creatinine ratio Check GN work up as VANIA/DNA ab, C3, C4, ANCA (MPO and [place]-3), Anti GBM antibody, HIV/Hep B and Hep C serology Anemia work up with TSAT/Ferritin/Vitamin B12/folate, serum protein electrophoresis with immunofixation, serum free light chain assay ([place]/Lambda) Check for 25-OH vitamin D, iPTH, phosphorus level. may need kidney biopsy, depending upon work up Dose meds/antibiotics for reduced GFR. Avoid fleets enema/magnesium based laxatives. Avoid nephrotoxins/NSAIDs/ iodinated contrast (unless needed emergently) Glycemic control Further work up for as per primary team Thanks for allowing me to participate in care of your patient. Will follow naa ent with you. Please call if any Qs. had d/w team Dr Per Negrete Office: [phone] Subjective: Noted events overnight. Patients feels okay. Denies chest pain, palpitation, shortness of breath, leg swelling. he is disoriented and unable to provide much reliable hx Physical Examination: General Appearance: Comfortable, in no acute respiratory distress, co-operative . Vitals reviewed and noted as below Head; Atraumatic, normocephalic ENT: no ulcers no thrush. Tongue is midline. Oropharynx: no rash or ulcers. EYES: Pupils are equal, round and reactive to light accommodation. Eye muscles and extraocular movement intact. Sclera is anicteric. Neck; supple no lymphadenopathy, no thyromegaly or bruit Lungs: Normal respiratory rate/effort. Breath sounds bilateral equal and basal crackle Heart: Normal rate. s1s2 normal. No rub or gallop. Extremities: no edema. No varicose veins Neurological: Patient is alert, awake and not oriented to person, place and time. No focal deficit. Strength bilateral appropriate and equal Skin: Warm and dry. Normal turgor. No rash. Palpitation: Normal elasticity for age Abdomen: Abdomen is soft. Bowel sounds +. There is no abdominal tenderness, no guarding/rigidity no organomegaly Psych: lack insight and normal affect/mood MSK: no joint tenderness or swelling. Digits and nails normal, no deformity : kidney or bladder not palpable Labs/imaging reviewed. Past medical history, past surgical history, family history, social history, allergy reviewed and noted as below Family hx: no hx of CKD. Rest non-contributory work up: CT chest : b/l nodule/infiltrate UA 30 protein and moderate blood imaging: kidneys WNL except left simple cyst Objective - Vital Signs/Intake and Output Vital Signs (last 24 hours): Temp Pulse Resp BP Pulse Ox 99.4 F 68 20 158/75 H 97 07/25/18 00:00 07/25/18 00:00 07/25/18 00:00 07/25/18 00:00 07/25/18 00:00 Intake and Output: 07/25/18 07/25/18 06:59 18:59 Intake Total 950 720 Output Total 3 Balance 950 717 - Medications Medications: Current Medications Dextrose (Dextrose 50% Inj) 0 ml IV STAT PRN; Protocol PRN Reason: Hypoglycemia Protocol Dextrose (Glutose 15) 0 gm PO ONCE PRN; Protocol PRN Reason: Hypoglycemia Protocol Enoxaparin Sodium (Lovenox) 30 mg SC DAILY [facility] Last Admin: 07/25/18 10:08 Dose: 30 mg Finasteride (Proscar) 5 mg PO DAILY [facility] Last Admin: 07/25/18 10:08 Dose: 5 mg Finasteride (Proscar) 5 mg PO DAILY [facility] Last Admin: 07/25/18 10:08 Dose: Not Given Glucagon (Glucagen Diagnostic Kit) 0 mg IM STAT PRN; Protocol PRN Reason: Hypoglycemia Protocol Dextrose (Dextrose 5% In Water 1000 Ml) 1,000 mls @ 0 mls/hr IV .Q0M PRN; Protocol PRN Reason: Hypoglycemia Protocol Piperacillin Sod/Tazobactam (Sod 3.375 gm/ Sodium Chloride) 100 mls @ 200 mls/hr IVPB Q6H [facility]; Protocol Last Admin: 07/25/18 05:30 Dose: 200 mls/hr Insulin Human Regular (Novolin R) 0 unit SC ACHS [facility] Last Admin: 07/25/18 08:30 Dose: Not Given Levothyroxine Sodium (Synthroid) 50 mcg PO DAILY@0630 [facility] Last Admin: 07/25/18 06:27 Dose: 50 mcg Pantoprazole Sodium (Protonix Ec Tab) 40 mg PO DAILY [facility] Last Admin: 07/25/18 10:08 Dose: 40 mg Promethazine HCl/Dextromethorphan (Phenergan Dm Syrup) 5 ml PO Q6H PRN PRN Reason: Cough Rosuvastatin Calcium (Crestor) 20 mg PO HS [facility] Last Admin: 07/24/18 21:34 Dose: 20 mg Fluticasone/Salmeterol (Advair Diskus 250/50) 1 puff IH RBID [facility] Last Admin: 07/24/18 19:58 Dose: 1 puff Tamsulosin HCl (Flomax) 0.4 mg PO DAILY [facility] Last Admin: 07/25/18 10:08 Dose: 0.4 mg - Labs Labs: 07/25/18 06:14 07/25/18 06:14 PT 12.7 SECONDS (9.7-12.2) H 07/20/18 14:41 INR 1.2 07/20/18 14:41 APTT 25 SECONDS (21-34) 07/20/18 14:41
[2018-07-25] MEDS: Fluticasone-Salmeterol 250-50mcg Diskus IH SCH ×2 (11:52→19:42)
--- NOTE | 2018-07-25 12:30 | CP.PCM.PN ---
Subjective - Date & Time of Evaluation Date of Evaluation: 07/25/18 Time of Evaluation: 08:00 - Subjective Subjective: low grade temps repeat blood c/s neg thus far IV rx in progreess await echo/ CT chest / Pulm eval Objective - Vital Signs/Intake and Output Vital Signs (last 24 hours): Temp Pulse Resp BP Pulse Ox 99.4 F 68 20 158/75 H 97 07/25/18 00:00 07/25/18 00:00 07/25/18 00:00 07/25/18 00:00 07/25/18 00:00 Intake and Output: 07/25/18 07/25/18 06:59 18:59 Intake Total 950 720 Output Total 3 Balance 950 717 - Medications Medications: Current Medications Dextrose (Dextrose 50% Inj) 0 ml IV STAT PRN; Protocol PRN Reason: Hypoglycemia Protocol Dextrose (Glutose 15) 0 gm PO ONCE PRN; Protocol PRN Reason: Hypoglycemia Protocol Enoxaparin Sodium (Lovenox) 30 mg SC DAILY [facility] Last Admin: 07/25/18 10:08 Dose: 30 mg Finasteride (Proscar) 5 mg PO DAILY [facility] Last Admin: 07/25/18 10:08 Dose: 5 mg Finasteride (Proscar) 5 mg PO DAILY [facility] Last Admin: 07/25/18 10:08 Dose: Not Given Glucagon (Glucagen Diagnostic Kit) 0 mg IM STAT PRN; Protocol PRN Reason: Hypoglycemia Protocol Dextrose (Dextrose 5% In Water 1000 Ml) 1,000 mls @ 0 mls/hr IV .Q0M PRN; Protocol PRN Reason: Hypoglycemia Protocol Piperacillin Sod/Tazobactam (Sod 3.375 gm/ Sodium Chloride) 100 mls @ 200 mls/hr IVPB Q6H [facility]; Protocol Last Admin: 07/25/18 11:19 Dose: 200 mls/hr Insulin Human Regular (Novolin R) 0 unit SC ACHS [facility] Last Admin: 07/25/18 08:30 Dose: Not Given Levothyroxine Sodium (Synthroid) 50 mcg PO DAILY@0630 [facility] Last Admin: 07/25/18 06:27 Dose: 50 mcg Pantoprazole Sodium (Protonix Ec Tab) 40 mg PO DAILY [facility] Last Admin: 07/25/18 10:08 Dose: 40 mg Promethazine HCl/Dextromethorphan (Phenergan Dm Syrup) 5 ml PO Q6H PRN PRN Reason: Cough Rosuvastatin Calcium (Crestor) 20 mg PO HS [facility] Last Admin: 07/24/18 21:34 Dose: 20 mg Fluticasone/Salmeterol (Advair Diskus 250/50) 1 puff IH RBID [facility] Last Admin: 07/25/18 11:52 Dose: 1 puff Tamsulosin HCl (Flomax) 0.4 mg PO DAILY [facility] Last Admin: 07/25/18 10:08 Dose: 0.4 mg - Labs Labs: 07/25/18 06:14 07/25/18 06:14 PT 12.7 SECONDS (9.7-12.2) H 07/20/18 14:41 INR 1.2 07/20/18 14:41 APTT 25 SECONDS (21-34) 07/20/18 14:41 - Constitutional Appears: Non-toxic, Chronically Ill - Head Exam Head Exam: NORMOCEPHALIC - Eye Exam Eye Exam: PERRL - ENT Exam ENT Exam: Mucous Membranes Dry - Neck Exam Neck Exam: absent: Lymphadenopathy - Respiratory Exam Respiratory Exam: Decreased Breath Sounds - Cardiovascular Exam Cardiovascular Exam: REGULAR RHYTHM - GI/Abdominal Exam GI & Abdominal Exam: Distended, Soft - Rectal Exam Rectal Exam: Deferred - Exam Exam: NORMAL INSPECTION - Extremities Exam Extremities Exam: absent: Pedal Edema - Back Exam Back Exam: absent: CVA tenderness (L), CVA tenderness (R) - Neurological Exam Neurological Exam: Alert, Awake, Oriented x3 Assessment and Plan (1) Bacteremia Status: Acute (2) Pneumonia Status: Acute - Assessment and Plan (Free Text) Assessment: ow grade temps repeat blood c/s neg thus far IV rx in progreess await echo/ CT chest / Pulm eval
--- NOTE | 2018-07-25 13:58 | RAD ---
Date of service: 07/25/2018 HISTORY: follow up on pneumonia/ fever COMPARISON: 07/20/2018. TECHNIQUE: Chest PA and lateral FINDINGS: LUNGS: Worsening lower lobe infiltrates. More confluent infiltrate left lower lobe. Of all fingers infiltrate right lower lobe. PLEURA: No discernible pleural effusion identified CARDIOVASCULAR: Normal. OSSEOUS STRUCTURES: No significant abnormalities. VISUALIZED UPPER ABDOMEN: Normal. OTHER FINDINGS: None. IMPRESSION: Worsening bilateral lower lobe infiltrates left greater than right.
--- NOTE | 2018-07-25 17:10 | CP.PCM.PN ---
Subjective - Date & Time of Evaluation Date of Evaluation: 07/25/18 Time of Evaluation: 17:10 - Subjective Subjective: Awake, alert, no sob or acute distress. Objective - Vital Signs/Intake and Output Vital Signs (last 24 hours): Temp Pulse Resp BP Pulse Ox 98.6 F 76 20 150/65 94 L 07/25/18 15:10 07/25/18 15:10 07/25/18 15:10 07/25/18 15:10 07/25/18 15:10 Intake and Output: 07/25/18 07/25/18 06:59 18:59 Intake Total 950 1620 Output Total 3 Balance 950 1617 - Medications Medications: Current Medications Dextrose (Dextrose 50% Inj) 0 ml IV STAT PRN; Protocol PRN Reason: Hypoglycemia Protocol Dextrose (Glutose 15) 0 gm PO ONCE PRN; Protocol PRN Reason: Hypoglycemia Protocol Enoxaparin Sodium (Lovenox) 30 mg SC DAILY [facility] Last Admin: 07/25/18 10:08 Dose: 30 mg Ferrous Gluconate (Fergon) 324 mg PO TID [facility] Last Admin: 07/25/18 14:03 Dose: 324 mg Finasteride (Proscar) 5 mg PO DAILY [facility] Last Admin: 07/25/18 10:08 Dose: 5 mg Finasteride (Proscar) 5 mg PO DAILY [facility] Last Admin: 07/25/18 10:08 Dose: Not Given Glucagon (Glucagen Diagnostic Kit) 0 mg IM STAT PRN; Protocol PRN Reason: Hypoglycemia Protocol Dextrose (Dextrose 5% In Water 1000 Ml) 1,000 mls @ 0 mls/hr IV .Q0M PRN; Protocol PRN Reason: Hypoglycemia Protocol Piperacillin Sod/Tazobactam (Sod 3.375 gm/ Sodium Chloride) 100 mls @ 200 mls/hr IVPB Q6H [facility]; Protocol Last Admin: 07/25/18 16:45 Dose: 200 mls/hr Sodium Chloride (Sodium Chloride 0.9%) 1,000 mls @ 50 mls/hr IV .Q20H [facility] Last Admin: 07/25/18 14:59 Dose: 50 mls/hr Insulin Human Regular (Novolin R) 0 unit SC ACHS [facility] Last Admin: 07/25/18 12:35 Dose: Not Given Levothyroxine Sodium (Synthroid) 50 mcg PO DAILY@0630 [facility] Last Admin: 07/25/18 06:27 Dose: 50 mcg Pantoprazole Sodium (Protonix Ec Tab) 40 mg PO DAILY [facility] Last Admin: 07/25/18 10:08 Dose: 40 mg Promethazine HCl/Dextromethorphan (Phenergan Dm Syrup) 5 ml PO Q6H PRN PRN Reason: Cough Rosuvastatin Calcium (Crestor) 20 mg PO HS [facility] Last Admin: 07/24/18 21:34 Dose: 20 mg Fluticasone/Salmeterol (Advair Diskus 250/50) 1 puff IH RBID [facility] Last Admin: 07/25/18 11:52 Dose: 1 puff Tamsulosin HCl (Flomax) 0.4 mg PO DAILY [facility] Last Admin: 07/25/18 10:08 Dose: 0.4 mg Vitamin B Complex/Vit C/Folic Acid (Nephro-Carlos) 1 tab PO 0800 [facility] - Labs Labs: 07/25/18 06:14 07/25/18 06:14 PT 12.7 SECONDS (9.7-12.2) H 07/20/18 14:41 INR 1.2 07/20/18 14:41 APTT 25 SECONDS (21-34) 07/20/18 14:41 Assessment and Plan - Assessment and Plan (Free Text) Assessment: 77 year old male admitted with pneumonia, seen and examined. Alert, awake, no sob or chest pains. Seen by DR Huntley, advised to continue treatment for pneumonia. Discussed with DR Dumont, plan to discharge to [facility] for 14 days of zosyn via PICC line as per DR Cerda. PT/OT to continue as tolerated. PICC line will be inserted at the rehab.
--- NOTE | 2018-07-25 18:10 | CP.PCM.PN ---
Subjective - Date & Time of Evaluation Date of Evaluation: 07/25/18 Time of Evaluation: 09:00 - Subjective Subjective: weak +bacteremic Awaiting echo Objective - Vital Signs/Intake and Output Vital Signs (last 24 hours): Temp Pulse Resp BP Pulse Ox 98.6 F 76 20 150/65 94 L 07/25/18 15:10 07/25/18 15:10 07/25/18 15:10 07/25/18 15:10 07/25/18 15:10 Intake and Output: 07/25/18 07/25/18 06:59 18:59 Intake Total 950 1620 Output Total 3 Balance 950 1617 - Medications Medications: Current Medications Dextrose (Dextrose 50% Inj) 0 ml IV STAT PRN; Protocol PRN Reason: Hypoglycemia Protocol Dextrose (Glutose 15) 0 gm PO ONCE PRN; Protocol PRN Reason: Hypoglycemia Protocol Enoxaparin Sodium (Lovenox) 30 mg SC DAILY [facility] Last Admin: 07/25/18 10:08 Dose: 30 mg Ferrous Gluconate (Fergon) 324 mg PO TID [facility] Last Admin: 07/25/18 14:03 Dose: 324 mg Finasteride (Proscar) 5 mg PO DAILY [facility] Last Admin: 07/25/18 10:08 Dose: 5 mg Finasteride (Proscar) 5 mg PO DAILY [facility] Last Admin: 07/25/18 10:08 Dose: Not Given Glucagon (Glucagen Diagnostic Kit) 0 mg IM STAT PRN; Protocol PRN Reason: Hypoglycemia Protocol Dextrose (Dextrose 5% In Water 1000 Ml) 1,000 mls @ 0 mls/hr IV .Q0M PRN; Protocol PRN Reason: Hypoglycemia Protocol Piperacillin Sod/Tazobactam (Sod 3.375 gm/ Sodium Chloride) 100 mls @ 200 mls/hr IVPB Q6H [facility]; Protocol Last Admin: 07/25/18 16:45 Dose: 200 mls/hr Sodium Chloride (Sodium Chloride 0.9%) 1,000 mls @ 50 mls/hr IV .Q20H [facility] Last Admin: 07/25/18 14:59 Dose: 50 mls/hr Insulin Human Regular (Novolin R) 0 unit SC ACHS [facility] Last Admin: 07/25/18 12:35 Dose: Not Given Levothyroxine Sodium (Synthroid) 50 mcg PO DAILY@0630 [facility] Last Admin: 07/25/18 06:27 Dose: 50 mcg Pantoprazole Sodium (Protonix Ec Tab) 40 mg PO DAILY [facility] Last Admin: 07/25/18 10:08 Dose: 40 mg Promethazine HCl/Dextromethorphan (Phenergan Dm Syrup) 5 ml PO Q6H PRN PRN Reason: Cough Rosuvastatin Calcium (Crestor) 20 mg PO HS [facility] Last Admin: 07/24/18 21:34 Dose: 20 mg Fluticasone/Salmeterol (Advair Diskus 250/50) 1 puff IH RBID [facility] Last Admin: 07/25/18 11:52 Dose: 1 puff Tamsulosin HCl (Flomax) 0.4 mg PO DAILY [facility] Last Admin: 07/25/18 10:08 Dose: 0.4 mg Vitamin B Complex/Vit C/Folic Acid (Nephro-Carlos) 1 tab PO 0800 [facility] - Labs Labs: 07/25/18 06:14 07/25/18 06:14 PT 12.7 SECONDS (9.7-12.2) H 07/20/18 14:41 INR 1.2 07/20/18 14:41 APTT 25 SECONDS (21-34) 07/20/18 14:41 - Constitutional Appears: Non-toxic - Head Exam Head Exam: NORMAL INSPECTION - Eye Exam Eye Exam: absent: Scleral icterus - ENT Exam ENT Exam: Mucous Membranes Moist - Neck Exam Neck Exam: Full ROM - Respiratory Exam Respiratory Exam: Decreased Breath Sounds - Cardiovascular Exam Cardiovascular Exam: REGULAR RHYTHM - GI/Abdominal Exam GI & Abdominal Exam: Soft, Tenderness - Extremities Exam Extremities Exam: Calf Tenderness. absent: Pedal Edema - Neurological Exam Neurological Exam: Awake Assessment and Plan - Assessment and Plan (Free Text) Assessment: Bacteremia Pneumonia r/o Infective endocarditis Plan: Awaiting ECHO Cont Abtx as per ID
--- NOTE | 2018-07-25 18:20 | PN ---
DATE: 07/25/2018 SUBJECTIVE: I saw him this morning in the [facility]. He slept well. He is eating a little bit better. He has had no complaints at this time. He is on Advair, Crestor, dextrose as needed, Lovenox, Novolin, Phenergan DM, Zosyn, Proscar, Protonix, and Synthroid. PHYSICAL EXAMINATION: VITAL SIGNS: Temp 99.4, yesterday was 99.8. Pulse 68, blood pressure 158/75, respiratory rate 20, O2 sat 97% on room air. HEENT: Head is atraumatic and normocephalic. CARDIOPULMONARY: Regular rate. LUNGS: Clear to auscultation with decreased breath sounds. ABDOMEN: Soft. EXTREMITIES: No edema. He came in dizzy to lower lobe infiltrate. He had acute kidney injury, anemia, left upper lobe nodules. LABORATORY DATA: He has a 12.8 white count, 9 hemoglobin, 28.6 hematocrit with 372 platelets. He has 138 sodium, potassium 3.8, BUN 29, creatinine 1.6, a little bit better. GFR is 42. Last blood sugar was 94, calcium is 8.2, phosphorous 3.3. Total bili is 0.4, AST is 115, ALT is 140, alk phos is 225, they are all a little bit better. Total protein is 6. ASSESSMENT AND PLAN: He is being seen by Infectious Disease, Renal, Gastroenterology, but awaiting for quality eng to evaluate his chest x-ray and his lungs. Having lower grade temp, repeating the blood cultures. I am definitely awaiting for my evaluation. Dr. Huntley was consulted to help with Pulmonary. I believe my first quality eng is on vacation, I was just told. Also awaiting for Clostridium difficile toxin to come back. We will continue with aggressive treatment and care. My plan is to get him to [facility] the family wants for physical therapy, which is recommended by Physical Therapy. Hopefully, we can do that by tomorrow if pulmonary status is okay. Continue aggressive treatment and care and intravenous antibiotics. Antonio Dumont DO [facility] # [phone] MTDD
--- NOTE | 2018-07-25 18:26 | CP.PCM.CON ---
History of Present Illness - History of Present Illness History of Present Illness: CC dizziness HPI 77 y/o male presents to ED with c/o dizziness and headache since yesterday. Patient states yesterday afternoon he began to feel dizzy, went to sit down and fell forward sustaining abrasion to head. He fell on carpeted floor, and denies LOC. Patient admits to still feeling dizzy and pain to head when palpated. Denies vision changes, vomiting, chest pain or sob. Admitted for pneumonia and ? lung mass Blood c/s x 2 + for cocci in cluters Review of Systems - Constitutional Constitutional: Frequent Falls - Neurological Neurological: Dizziness Past Patient History - Past Medical History & Family History Past Medical History?: Yes - Past Social History Smoking Status: Never Smoked - CARDIAC Hx Hypertension: Yes - NEUROLOGICAL Hx Neurological Disorder: No - HEENT Hx HEENT Problems: No - RENAL Hx Chronic Kidney Disease: No - ENDOCRINE/METABOLIC Hx Diabetes Mellitus Type 2: Yes - HEMATOLOGICAL/ONCOLOGICAL Hx Blood Disorders: No - INTEGUMENTARY Hx Dermatological Problems: No - MUSCULOSKELETAL/RHEUMATOLOGICAL Hx Arthritis: Yes - GASTROINTESTINAL Hx Gastrointestinal Disorders: No - GENITOURINARY/GYNECOLOGICAL Hx Genitourinary Disorders: No - PSYCHIATRIC Hx Substance Use: No - SURGICAL HISTORY Hx Surgeries: No - ANESTHESIA Hx Anesthesia: No Hx Anesthesia Reactions: No Hx Malignant Hyperthermia: No Has any member of the family had a problem w/ anesthesia?: No Meds Home Medications: Home Medication List Medication Instructions Recorded Confirmed Type Piperacillin/Tazobact [Zosyn] 3.375 gm IVPB Q6H vial 07/25/18 Rx Allergies/Adverse Reactions: Allergies Allergy/AdvReac Type Severity Reaction Status Date / Time No Known Allergies Allergy Verified 07/20/18 14:11 - Medications Medications: Current Medications Dextrose (Dextrose 50% Inj) 0 ml IV STAT PRN; Protocol PRN Reason: Hypoglycemia Protocol Dextrose (Glutose 15) 0 gm PO ONCE PRN; Protocol PRN Reason: Hypoglycemia Protocol Enoxaparin Sodium (Lovenox) 30 mg SC DAILY [facility] Last Admin: 07/25/18 10:08 Dose: 30 mg Ferrous Gluconate (Fergon) 324 mg PO TID [facility] Last Admin: 07/25/18 18:06 Dose: 324 mg Finasteride (Proscar) 5 mg PO DAILY [facility] Last Admin: 07/25/18 10:08 Dose: 5 mg Finasteride (Proscar) 5 mg PO DAILY [facility] Last Admin: 07/25/18 10:08 Dose: Not Given Glucagon (Glucagen Diagnostic Kit) 0 mg IM STAT PRN; Protocol PRN Reason: Hypoglycemia Protocol Dextrose (Dextrose 5% In Water 1000 Ml) 1,000 mls @ 0 mls/hr IV .Q0M PRN; Protocol PRN Reason: Hypoglycemia Protocol Piperacillin Sod/Tazobactam (Sod 3.375 gm/ Sodium Chloride) 100 mls @ 200 mls/hr IVPB Q6H [facility]; Protocol Last Admin: 07/25/18 16:45 Dose: 200 mls/hr Sodium Chloride (Sodium Chloride 0.9%) 1,000 mls @ 50 mls/hr IV .Q20H [facility] Last Admin: 07/25/18 14:59 Dose: 50 mls/hr Insulin Human Regular (Novolin R) 0 unit SC ACHS [facility] Last Admin: 07/25/18 18:07 Dose: Not Given Levothyroxine Sodium (Synthroid) 50 mcg PO DAILY@0630 [facility] Last Admin: 07/25/18 06:27 Dose: 50 mcg Pantoprazole Sodium (Protonix Ec Tab) 40 mg PO DAILY [facility] Last Admin: 07/25/18 10:08 Dose: 40 mg Promethazine HCl/Dextromethorphan (Phenergan Dm Syrup) 5 ml PO Q6H PRN PRN Reason: Cough Rosuvastatin Calcium (Crestor) 20 mg PO HS [facility] Last Admin: 07/24/18 21:34 Dose: 20 mg Fluticasone/Salmeterol (Advair Diskus 250/50) 1 puff IH RBID [facility] Last Admin: 07/25/18 11:52 Dose: 1 puff Tamsulosin HCl (Flomax) 0.4 mg PO DAILY [facility] Last Admin: 07/25/18 10:08 Dose: 0.4 mg Vitamin B Complex/Vit C/Folic Acid (Nephro-Carlos) 1 tab PO 0800 [facility] Physical Exam - Constitutional Appears: Non-toxic - Head Exam Head Exam: NORMAL INSPECTION - Eye Exam Eye Exam: absent: Scleral icterus - ENT Exam ENT Exam: Normal Oropharynx - Neck Exam Neck exam: Positive for: Full Rom - Respiratory Exam Respiratory Exam: Decreased Breath Sounds - Cardiovascular Exam Cardiovascular Exam: REGULAR RHYTHM - GI/Abdominal Exam GI & Abdominal Exam: Soft. absent: Tenderness - Extremities Exam Extremities exam: Positive for: pedal edema. Negative for: calf tenderness - Neurological Exam Neurological exam: Alert Results - Vital Signs Recent Vital Signs: Last Vital Signs Temp 98.6 F 07/25/18 15:10 Pulse 76 07/25/18 15:10 Resp 20 07/25/18 15:10 BP 150/65 07/25/18 15:10 Pulse Ox 94 L 07/25/18 15:10 - Labs Result Diagrams: 07/25/18 06:14 07/25/18 06:14 Labs: Laboratory Results - last 24 hr 07/24/18 07/24/18 07/24/18 14:14 14:14 20:58 WBC RBC Hgb Hct MCV MCH MCHC RDW Plt Count MPV Neut % (Auto) Lymph % (Auto) Weld % (Auto) Eos % (Auto) Baso % (Auto) Neut # (Auto) Lymph # (Auto) Weld # (Auto) Eos # (Auto) Baso # (Auto) Neutrophils % (Manual) Lymphocytes % (Manual) Reactive Lymphs % Monocytes % (Manual) Eosinophils % (Manual) Platelet Estimate Hypochromasia (manual) Anisocytosis (manual) Sodium Potassium Chloride Carbon Dioxide Anion Gap BUN Creatinine Est GFR ( Amer) Est GFR (Non-Af Amer) POC Glucose (mg/dL) 131 H Random Glucose Calcium Phosphorus Total Bilirubin AST ALT Alkaline Phosphatase Total Protein Albumin Globulin Albumin/Globulin Ratio 25-OH Vitamin D Total PTH Intact Whole Molec 75 H VANIA Nuclear Membr Pat Negative Double Strand DNA Ab <1 07/25/18 07/25/18 07/25/18 06:14 06:14 06:14 WBC 12.8 H RBC 3.02 L Hgb 9.0 L Hct 26.4 L MCV 87.4 MCH 29.8 MCHC 34.1 RDW 15.5 H Plt Count 372 MPV 7.6 Neut % (Auto) 87.6 H Lymph % (Auto) 5.0 L Weld % (Auto) 5.4 Eos % (Auto) 1.4 Baso % (Auto) 0.6 Neut # (Auto) 11.2 H Lymph # (Auto) 0.6 L Weld # (Auto) 0.7 Eos # (Auto) 0.2 Baso # (Auto) 0.1 Neutrophils % (Manual) 88 H Lymphocytes % (Manual) 4 L Reactive Lymphs % 2 H Monocytes % (Manual) 5 Eosinophils % (Manual) 1 Platelet Estimate Normal Hypochromasia (manual) Slight Anisocytosis (manual) Slight Sodium 138 Potassium 3.8 Chloride 105 Carbon Dioxide 21 L Anion Gap 16 BUN 29 H Creatinine 1.6 H Est GFR ( Amer) 51 Est GFR (Non-Af Amer) 42 POC Glucose (mg/dL) Random Glucose 102 Calcium 8.2 L Phosphorus 3.3 Total Bilirubin 0.4 AST 115 H ALT 140 H Alkaline Phosphatase 225 H Total Protein 6.0 L Albumin 3.0 L Globulin 2.9 Albumin/Globulin Ratio 1.0 25-OH Vitamin D Total 56.5 PTH Intact Whole Molec VANIA Nuclear Membr Pat Double Strand DNA Ab 07/25/18 07/25/18 07/25/18 07:22 11:17 16:34 WBC RBC Hgb Hct MCV MCH MCHC RDW Plt Count MPV Neut % (Auto) Lymph % (Auto) Weld % (Auto) Eos % (Auto) Baso % (Auto) Neut # (Auto) Lymph # (Auto) Weld # (Auto) Eos # (Auto) Baso # (Auto) Neutrophils % (Manual) Lymphocytes % (Manual) Reactive Lymphs % Monocytes % (Manual) Eosinophils % (Manual) Platelet Estimate Hypochromasia (manual) Anisocytosis (manual) Sodium Potassium Chloride Carbon Dioxide Anion Gap BUN Creatinine Est GFR ( Amer) Est GFR (Non-Af Amer) POC Glucose (mg/dL) 98 94 93 Random Glucose Calcium Phosphorus Total Bilirubin AST ALT Alkaline Phosphatase Total Protein Albumin Globulin Albumin/Globulin Ratio 25-OH Vitamin D Total PTH Intact Whole Molec VANIA Nuclear Membr Pat Double Strand DNA Ab Assessment & Plan - Assessment and Plan (Free Text) Assessment: Recurrent dizziness Bacteremia r/o Infective endocarditis CKD stage 2-3 Plan: ECHO Abtx as per ID If no endocarditis, will do TILT table test when more stable. - Date & Time Date: 07/24/18 Time: 09:00
[2018-07-26] MEDS: Piperacillin/Tazobact 3.375 GM in Sodium Chloride 100 ML IVPB SCH ×3 (05:14→17:16)
[2018-07-26] MEDS: Levothyroxine 50 MCG TAB PO SCH (06:15)
[2018-07-26] MEDS: Sodium Chloride 0.9% 1,000 ML IV SCH (06:16)
[2018-07-26 06:38] LABS: BASO # 0.1 K/uL (0.0-0.2); BASO % 0.4 % (0.0-2.0); EOS # 0.2 K/uL (0.0-0.7); EOS % 1.3 % (0.0-4.0); HEMOGLOBIN 8.3 g/dL (12.0-18.0); LYMPH # 0.9 K/uL (1.0-4.3); LYMPH % 7.4 % (20.0-40.0); MEAN CELL VOLUME 86.1 fL (80.0-94.0); MEAN CORPUSCULAR HGB CONC 33.7 g/dL (33.0-37.0); MEAN PLATELET VOLUME 7.4 fL (7.2-11.7); MONO # 0.9 K/uL (0.0-0.8); MONO % 7.4 % (0.0-10.0); NEUT # 9.9 K/uL (1.8-7.0); NEUT % 83.5 % (50.0-75.0); PLATELET COUNT 399 K/uL (130-400); RBC 2.85 Mil/uL (4.40-5.90); RED CELL DISTRIBUTION WIDTH 15.2 % (11.5-14.5); WHITE BLOOD COUNT 11.9 K/uL (4.8-10.8)
--- NOTE | 2018-07-26 07:00 | CON ---
DATE: 07/25/2018 HISTORY OF PRESENT ILLNESS: The patient is a 77-year-old male with a history of chronic anemia, diabetes, prostate problem, presents with chief complaints of weakness, fatigue, tiredness and passing out. The patient came to the ER, found to have large pneumonia. PHYSICAL EXAMINATION: GENERAL: The patient is awake, feels weak, under nourished, oriented to time and place. VITAL SIGNS: Temperature 98.8, pulse 90, blood pressure 120/78. HEENT: Within normal limits. NECK: Supple. CHEST: Symmetrical. HEART: Regular. ABDOMEN: Soft. EXTREMITIES: No edema. ASSESSMENT AND PLAN: The patient left upper lobe lingular infiltrate, right lung. Clinically, the white count elevated, on admission hemoglobin 8.6. The patient suffers from pneumonia, history of chronic anemia for which he was following with Dr. Zaragoza, engagement quality consultant, in the past. Diabetes, prolonged dementia. The patient get bedrest, intravenous antibiotics, clearance. Roman Huntley MD
[2018-07-26 07:44] LABS: ALB/GLOB RATIO 0.9 (1.0-2.1); ALBUMIN 2.6 g/dL (3.5-5.0)
[2018-07-26] MEDS: (Novolin R) Insulin Human Regular 100 units/ml vial SC SCH ×3 (07:44→17:14)
[2018-07-26] MEDS: Fluticasone-Salmeterol 250-50mcg Diskus IH SCH (07:50)
[2018-07-26] MEDS ORDERED: Multivitamin Vitamin B Complex (Nephro-Vite) Tab PO SCH (08:00)
[2018-07-26 08:14] LABS: BANDS 1 % (0-2); LYMPHOCYTE 10 % (20-40); MONOCYTE 7 % (0-10); NEUTROPHIL 82 % (50-75); TOTAL CELLS COUNTED 100
[2018-07-26 08:15] LABS: ANISOCYTOSIS SLIGHT; PLATELET ESTIMATE NORMAL (NORMAL)
[2018-07-26 08:16] LABS: HYPOCHROMIC SLIGHT; OVALOCYTES SLIGHT; POLYCHROMIC SLIGHT
[2018-07-26] MEDS: LIPASE/PROTEASE/AMYLASE 21,000 U ECC PO SCH ×3 (08:39→17:16)
[2018-07-26] MEDS: Pantoprazole 40 mg EC Tab PO SCH (10:04)
[2018-07-26] MEDS: Enoxaparin 30 mg Syringe SC SCH (10:05)
--- NOTE | 2018-07-26 11:24 | CARD ---
APPROVED REPORT Date of service: 07/25/2018 EXAM: Two-dimensional and M-mode echocardiogram with Doppler and color Doppler. Other Information Quality : GoodRhythm : INDICATION Infection:Rule out subacute bacterial endocarditis RISK FACTORS Hypertension Diabetes 2D DIMENSIONS IVSd1.3 (0.7-1.1cm)LVDd4.4 (3.9-5.9cm) PWd1.0 (0.7-1.1cm)LVDs3.5 (2.5-4.0cm) FS (%) 20.1 % M-Mode DIMENSIONS RVDd1.24 (2.1-3.2cm)Left Atrium (MM)4.14 (2.5-4.0cm) IVSd0.72 (0.7-1.1cm)Aortic Root2.71 (2.2-3.7cm) LVDd5.37 (4.0-5.6cm)Aortic Cusp Exc.1.96 (1.5-2.0cm) PWd0.98 (0.7-1.1cm)FS (%) 43 % LVDs3.06 (2.0-3.8cm)LVEF (%)74 (>50%) Mitral Valve MV E Hkqudsdh660.1cm/sMV A Fjzosrgk024.6cm/sE/A ratio0.8 TDI E/Lateral E'0.0E/Medial E'0.0 Tricuspid Valve TR Peak Dtofsykl751ch/sTR Peak Gr.[id number] LEFT VENTRICLE The left ventricle is normal size. <Conclusion> normal size lv,ra & rv. la is mildly dilated. normal lv wall motion,thickness,systolic & diastolic function with lvef of 65-70%. calcified aml.mild mr. normal tv & pv. sclerotic trileaflet aortic valve.no ai. mild tr with normal pulmonary systolic pressures of 30 mm of hg. no pericardial effusion. normal size aortic root.
--- NOTE | 2018-07-26 12:29 | CP.PCM.PN ---
Subjective - Date & Time of Evaluation Date of Evaluation: 07/26/18 Time of Evaluation: 08:00 - Subjective Subjective: less cough less sob awake alert nad Objective - Vital Signs/Intake and Output Vital Signs (last 24 hours): Temp Pulse Resp BP Pulse Ox 99.8 F H 87 20 151/67 H 95 07/26/18 08:00 07/26/18 08:00 07/26/18 08:00 07/26/18 08:00 07/26/18 08:00 Intake and Output: 07/26/18 07/26/18 06:59 18:59 Intake Total 850 600 Balance 850 600 - Medications Medications: Current Medications Dextrose (Dextrose 50% Inj) 0 ml IV STAT PRN; Protocol PRN Reason: Hypoglycemia Protocol Dextrose (Glutose 15) 0 gm PO ONCE PRN; Protocol PRN Reason: Hypoglycemia Protocol Enoxaparin Sodium (Lovenox) 30 mg SC DAILY [facility] Last Admin: 07/26/18 10:05 Dose: 30 mg Ferrous Gluconate (Fergon) 324 mg PO TID [facility] Last Admin: 07/26/18 10:19 Dose: 324 mg Finasteride (Proscar) 5 mg PO DAILY [facility] Last Admin: 07/26/18 10:04 Dose: 5 mg Finasteride (Proscar) 5 mg PO DAILY [facility] Last Admin: 07/26/18 10:04 Dose: Not Given Glucagon (Glucagen Diagnostic Kit) 0 mg IM STAT PRN; Protocol PRN Reason: Hypoglycemia Protocol Dextrose (Dextrose 5% In Water 1000 Ml) 1,000 mls @ 0 mls/hr IV .Q0M PRN; Protocol PRN Reason: Hypoglycemia Protocol Piperacillin Sod/Tazobactam (Sod 3.375 gm/ Sodium Chloride) 100 mls @ 200 mls/hr IVPB Q6H [facility]; Protocol Last Admin: 07/26/18 10:08 Dose: 200 mls/hr Sodium Chloride (Sodium Chloride 0.9%) 1,000 mls @ 50 mls/hr IV .Q20H [facility] Last Admin: 07/26/18 06:16 Dose: 50 mls/hr Insulin Human Regular (Novolin R) 0 unit SC ACHS [facility] Last Admin: 07/26/18 11:57 Dose: Not Given Levothyroxine Sodium (Synthroid) 50 mcg PO DAILY@0630 [facility] Last Admin: 07/26/18 06:15 Dose: 50 mcg Pantoprazole Sodium (Protonix Ec Tab) 40 mg PO DAILY [facility] Last Admin: 07/26/18 10:04 Dose: 40 mg Promethazine HCl/Dextromethorphan (Phenergan Dm Syrup) 5 ml PO Q6H PRN PRN Reason: Cough Rosuvastatin Calcium (Crestor) 20 mg PO HS [facility] Last Admin: 07/25/18 22:06 Dose: 20 mg Fluticasone/Salmeterol (Advair Diskus 250/50) 1 puff IH RBID [facility] Last Admin: 07/26/18 07:50 Dose: 1 puff Tamsulosin HCl (Flomax) 0.4 mg PO DAILY [facility] Last Admin: 07/26/18 10:19 Dose: 0.4 mg Vitamin B Complex/Vit C/Folic Acid (Nephro-Carlos) 1 tab PO 0800 [facility] Last Admin: 07/26/18 08:37 Dose: 1 tab - Labs Labs: 07/26/18 06:14 07/26/18 06:14 PT 12.7 SECONDS (9.7-12.2) H 07/20/18 14:41 INR 1.2 07/20/18 14:41 APTT 25 SECONDS (21-34) 07/20/18 14:41 - Constitutional Appears: Non-toxic, Chronically Ill - Head Exam Head Exam: NORMOCEPHALIC - Eye Exam Eye Exam: absent: Scleral icterus - ENT Exam ENT Exam: Mucous Membranes Dry - Neck Exam Neck Exam: absent: Lymphadenopathy - Respiratory Exam Respiratory Exam: Decreased Breath Sounds, Rhonchi - Cardiovascular Exam Cardiovascular Exam: REGULAR RHYTHM, +S1, +S2 - GI/Abdominal Exam GI & Abdominal Exam: Distended, Soft. absent: Tenderness - Rectal Exam Rectal Exam: Deferred - Exam Exam: NORMAL INSPECTION - Back Exam Back Exam: absent: CVA tenderness (L), CVA tenderness (R) - Neurological Exam Neurological Exam: Alert, Awake, CN II-XII Intact Assessment and Plan (1) Bacteremia Status: Acute (2) Pneumonia Status: Acute (3) MSSA (methicillin susceptible Staphylococcus aureus) septicemia Status: Acute - Assessment and Plan (Free Text) Assessment: cont iv rx for min 14 days
--- NOTE | 2018-07-26 16:06 | RAD ---
Date of service: 07/26/2018 HISTORY: Verify PICC line placement. COMPARISON: No prior. FINDINGS: LUNGS: Stable multifocal primarily lower lobe infiltrates. PLEURA: Stable pleural effusions. CARDIOVASCULAR: PICC line in satisfactory position the tip is within 3 cm of the cavoatrial junction in the SVC. No pneumothorax identified. OSSEOUS STRUCTURES: No significant abnormalities. VISUALIZED UPPER ABDOMEN: Normal. OTHER FINDINGS: None. IMPRESSION: Satisfactory position of recently placed PICC line. Stable pulmonary and pleural findings.
--- NOTE | 2018-07-26 16:10 | CP.PCM.PN ---
Subjective - Date & Time of Evaluation Date of Evaluation: 07/26/18 Time of Evaluation: 16:09 - Subjective Subjective: Nephrology Consultation Note Assessment: Stable Acute Kidney Injury (N17.9) improving r/o underlying GN such as ANCA vasculitis: improved with IVF Anemia sepsis pneumonia simple kidney cyst DM, HTN, BPH Hypokalemia AMS ? dementia Plan No acute need for renal replacement therapy at this time. Hypertension control with meds as ordered. Maintain hemodynamics stable. Avoid hypotension. Patient not on ACEI/ARB due to recent ADEN Monitor Input/Output, daily weights and renal function with basic metabolic panel d/c IVF supplement lytes as needed started iron and MVI echo results reviewed Check urine analysis, spot protein/creatinine, albumin/creatinine ratio Check GN work up as VANIA/DNA ab, C3, C4, ANCA (MPO and GA-3), Anti GBM antibody, HIV/Hep B and Hep C serology Anemia work up with TSAT/Ferritin/Vitamin B12/folate, serum protein electrophoresis with immunofixation, serum free light chain assay ([place]/Lambda) Check for 25-OH vitamin D, iPTH, phosphorus level. may need kidney biopsy, depending upon work up. so far neg Dose meds/antibiotics for reduced GFR. Avoid fleets enema/magnesium based laxatives. Avoid nephrotoxins/NSAIDs/ iodinated contrast (unless needed emergently) Glycemic control Further work up for as per primary team Thanks for allowing me to participate in care of your patient. Will follow patient with you. Please call if any Qs. had d/w team Dr Per Negrete Office: [phone] Subjective: Noted events overnight. Patients feels okay. Denies chest pain, palpitation, shortness of breath, leg swelling. he is disoriented and unable to provide much reliable hx Physical Examination: General Appearance: Comfortable, in no acute respiratory distress, co-operative . Vitals reviewed and noted as below Head; Atraumatic, normocephalic ENT: no ulcers no thrush. Tongue is midline. Oropharynx: no rash or ulcers. EYES: Pupils are equal, round and reactive to light accommodation. Eye muscles and extraocular movement intact. Sclera is anicteric. Neck; supple no lymphadenopathy, no thyromegaly or bruit Lungs: Normal respiratory rate/effort. Breath sounds bilateral equal and basal crackle Heart: Normal rate. s1s2 normal. No rub or gallop. Extremities: no edema. No varicose veins Neurological: Patient is alert, awake and not oriented to person, place and time. No focal deficit. Strength bilateral appropriate and equal Skin: Warm and dry. Normal turgor. No rash. Palpitation: Normal elasticity for age Abdomen: Abdomen is soft. Bowel sounds +. There is no abdominal tenderness, no guarding/rigidity no organomegaly Psych: lack insight and normal affect/mood MSK: no joint tenderness or swelling. Digits and nails normal, no deformity : kidney or bladder not palpable Labs/imaging reviewed. Past medical history, past surgical history, family history, social history, allergy reviewed and noted as below Family hx: no hx of CKD. Rest non-contributory work up: CT chest : b/l nodule/infiltrate UA 30 protein and moderate blood imaging: kidneys WNL except left simple cyst Objective - Vital Signs/Intake and Output Vital Signs (last 24 hours): Temp Pulse Resp BP Pulse Ox 99.8 F H 87 20 151/67 H 95 07/26/18 08:00 07/26/18 08:00 07/26/18 08:00 07/26/18 08:00 07/26/18 08:00 Intake and Output: 07/26/18 07/26/18 06:59 18:59 Intake Total 850 600 Balance 850 600 - Medications Medications: Current Medications Dextrose (Dextrose 50% Inj) 0 ml IV STAT PRN; Protocol PRN Reason: Hypoglycemia Protocol Dextrose (Glutose 15) 0 gm PO ONCE PRN; Protocol PRN Reason: Hypoglycemia Protocol Enoxaparin Sodium (Lovenox) 30 mg SC DAILY [facility] Last Admin: 07/26/18 10:05 Dose: 30 mg Ferrous Gluconate (Fergon) 324 mg PO TID [facility] Last Admin: 07/26/18 13:53 Dose: 324 mg Finasteride (Proscar) 5 mg PO DAILY [facility] Last Admin: 07/26/18 10:04 Dose: 5 mg Finasteride (Proscar) 5 mg PO DAILY [facility] Last Admin: 07/26/18 10:04 Dose: Not Given Glucagon (Glucagen Diagnostic Kit) 0 mg IM STAT PRN; Protocol PRN Reason: Hypoglycemia Protocol Dextrose (Dextrose 5% In Water 1000 Ml) 1,000 mls @ 0 mls/hr IV .Q0M PRN; Protocol PRN Reason: Hypoglycemia Protocol Piperacillin Sod/Tazobactam (Sod 3.375 gm/ Sodium Chloride) 100 mls @ 200 mls/hr IVPB Q6H [facility]; Protocol Last Admin: 07/26/18 10:08 Dose: 200 mls/hr Insulin Human Regular (Novolin R) 0 unit SC ACHS [facility] Last Admin: 07/26/18 11:57 Dose: Not Given Levothyroxine Sodium (Synthroid) 50 mcg PO DAILY@0630 [facility] Last Admin: 07/26/18 06:15 Dose: 50 mcg Pantoprazole Sodium (Protonix Ec Tab) 40 mg PO DAILY [facility] Last Admin: 07/26/18 10:04 Dose: 40 mg Promethazine HCl/Dextromethorphan (Phenergan Dm Syrup) 5 ml PO Q6H PRN PRN Reason: Cough Rosuvastatin Calcium (Crestor) 20 mg PO HS [facility] Last Admin: 07/25/18 22:06 Dose: 20 mg Fluticasone/Salmeterol (Advair Diskus 250/50) 1 puff IH RBID [facility] Last Admin: 07/26/18 07:50 Dose: 1 puff Tamsulosin HCl (Flomax) 0.4 mg PO DAILY [facility] Last Admin: 07/26/18 10:19 Dose: 0.4 mg Vitamin B Complex/Vit C/Folic Acid (Nephro-Carlos) 1 tab PO 0800 [facility] Last Admin: 07/26/18 08:37 Dose: 1 tab - Labs Labs: 07/26/18 06:14 07/26/18 06:14 PT 12.7 SECONDS (9.7-12.2) H 07/20/18 14:41 INR 1.2 07/20/18 14:41 APTT 25 SECONDS (21-34) 07/20/18 14:41
[2018-07-26 16:12] VITALS: BP 156/75; PULSE 81; TEMP 99.1; O2SAT 96
--- NOTE | 2018-07-26 17:23 | CP.PCM.PN ---
Subjective - Date & Time of Evaluation Date of Evaluation: 07/26/18 Time of Evaluation: 17:23 - Subjective Subjective: alert, awke, no sob or distress. Objective - Vital Signs/Intake and Output Vital Signs (last 24 hours): Temp Pulse Resp BP Pulse Ox 99.1 F 81 20 156/75 H 96 07/26/18 15:11 07/26/18 15:11 07/26/18 15:11 07/26/18 15:11 07/26/18 15:11 Intake and Output: 07/26/18 07/26/18 06:59 18:59 Intake Total 850 600 Balance 850 600 - Medications Medications: Current Medications Dextrose (Dextrose 50% Inj) 0 ml IV STAT PRN; Protocol PRN Reason: Hypoglycemia Protocol Dextrose (Glutose 15) 0 gm PO ONCE PRN; Protocol PRN Reason: Hypoglycemia Protocol Enoxaparin Sodium (Lovenox) 30 mg SC DAILY [facility] Last Admin: 07/26/18 10:05 Dose: 30 mg Ferrous Gluconate (Fergon) 324 mg PO TID [facility] Last Admin: 07/26/18 17:19 Dose: 324 mg Finasteride (Proscar) 5 mg PO DAILY [facility] Last Admin: 07/26/18 10:04 Dose: 5 mg Finasteride (Proscar) 5 mg PO DAILY [facility] Last Admin: 07/26/18 10:04 Dose: Not Given Glucagon (Glucagen Diagnostic Kit) 0 mg IM STAT PRN; Protocol PRN Reason: Hypoglycemia Protocol Dextrose (Dextrose 5% In Water 1000 Ml) 1,000 mls @ 0 mls/hr IV .Q0M PRN; Pro tocol PRN Reason: Hypoglycemia Protocol Piperacillin Sod/Tazobactam (Sod 3.375 gm/ Sodium Chloride) 100 mls @ 200 mls/hr IVPB Q6H [facility]; Protocol Last Admin: 07/26/18 17:16 Dose: 200 mls/hr Insulin Human Regular (Novolin R) 0 unit SC ACHS [facility] Last Admin: 07/26/18 17:14 Dose: 3 unit Levothyroxine Sodium (Synthroid) 50 mcg PO DAILY@0630 [facility] Last Admin: 07/26/18 06:15 Dose: 50 mcg Pantoprazole Sodium (Protonix Ec Tab) 40 mg PO DAILY [facility] Last Admin: 07/26/18 10:04 Dose: 40 mg Promethazine HCl/Dextromethorphan (Phenergan Dm Syrup) 5 ml PO Q6H PRN PRN Reason: Cough Rosuvastatin Calcium (Crestor) 20 mg PO HS [facility] Last Admin: 07/25/18 22:06 Dose: 20 mg Fluticasone/Salmeterol (Advair Diskus 250/50) 1 puff IH RBID [facility] Last Admin: 07/26/18 07:50 Dose: 1 puff Tamsulosin HCl (Flomax) 0.4 mg PO DAILY [facility] Last Admin: 07/26/18 10:19 Dose: 0.4 mg Vitamin B Complex/Vit C/Folic Acid (Nephro-Carlos) 1 tab PO 0800 [facility] Last Admin: 07/26/18 08:37 Dose: 1 tab - Labs Labs: 07/26/18 06:14 07/26/18 06:14 PT 12.7 SECONDS (9.7-12.2) H 07/20/18 14:41 INR 1.2 07/20/18 14:41 APTT 25 SECONDS (21-34) 07/20/18 14:41 Assessment and Plan - Assessment and Plan (Free Text) Assessment: Patient awaiting for rehab, seen and examined. Denies sob or chest pains, out of bed on the chair. PICC line was inserted today. Discharge to [facility] rehab as requested by the family. Will continue with IV antibiotics as instucted by DR Dumont.
[2018-07-27 01:24] LABS: ANCA SCREEN NEGATIVE (NEGATIVE)
--- NOTE | 2018-07-27 03:17 | DS ---
HISTORY: He is resting comfortably in room 258 at [facility]. He was here for dizziness, left lobe infiltrate, high LFTs, left upper lobe nodules. He was seen by numerous physicians, Infectious Disease, Renal, Cardiology and Pulmonary. He will need 14 days of IV Zosyn via PICC line. He will be followed at subacute rehab. He is going to go there for physical therapy and medications, I will be seeing him there. PHYSICAL EXAMINATION: VITAL SIGNS: 98.2 temperature, 71 pulse, 149/74 blood pressure, 20 respiratory rate, 97% O2 sat on nasal cannula. HEENT: Head is atraumatic, normocephalic. HEART: Regular rate. LUNGS: Clear to auscultation. ABDOMEN: Soft, nontender. Positive bowel sounds. EXTREMITIES: No edema. He also needs physical therapy. Helping with his diet. He had bacteremia, acute pneumonia, he will need 14 days of IV antibiotics. We are also waiting for the echo to come back to make sure there are no vegetations in the heart. He needs to be discharged today to [facility], refused to go to [facility]. Antonio Dumont DO MTDD
[2018-07-27 09:04] LABS: ALBUMIN (PEP) 2.4 g/dL (3.8-4.8); ALPHA-1-GLOBULIN (PEP) 0.6 g/dL (0.2-0.3)
== END 2018-07-26 19:41 | DRG 871 ==
LOC: C.ER 14:02 → C.9E 16:44 → C.3T 20:14
PROVIDERS: ADMIT Family Medicine; ATTEND Family Medicine
PROC: 02HV33Z Insertion of Infusion Device into Superior Vena Cava, Percutaneous Approach (ICD-10-PCS; principal; 2018-07-26)
DX: A41.9 Sepsis, unspecified organism (principal); J18.9 Pneumonia, unspecified organism; N17.9 Acute kidney failure, unspecified; R65.20 Severe sepsis without septic shock; I10 Essential (primary) hypertension; E11.9 Type 2 diabetes mellitus without complications; S09.90XA Unspecified injury of head, initial encounter; W19.XXXA Unspecified fall, initial encounter; R55 Syncope and collapse; M19.90 Unspecified osteoarthritis, unspecified site; E87.6 Hypokalemia; D64.9 Anemia, unspecified; J40 Bronchitis, not specified as acute or chronic; T36.1X5A Adverse effect of cephalosporins and other beta-lactam antibiotics, initial encounter; K71.9 Toxic liver disease, unspecified